=== PATIENT | female | born 1925 | race Caucasian/White ===

== ENCOUNTER 2016-06-09 13:45 | Inpatient (IN) | payer OTHER ==
[2016-06-09 13:51] VITALS: BMI 24.0
--- NOTE | 2016-06-09 14:17 | PDOC ---
History of Present Illness <Rachel Briscoe - Last Filed: 06/09/16 17:13> - General History Source: Patient Exam Limitations: No Limitations - History of Present Illness Initial Comments: 06/09/16 14:19 89y F hx of COPD (not o2 dependent) CHF, HTN, HL, presents with cough/body aches , nasal congestion x 9 days - pt denies any associated fevers. Pt was given a cough medicine by dr. bazan, symtomshave not been getting better, and pt endorses mild substernal chets pain that is worse with coughing, not worse with ambulation/exertion, as well as some sob as well. pt denies any recent sick contacts, travel. The pt states cough is nonproductive. denies leg swelling, hemoptysis. no known cad former smoker 50 yrs ago) 06/09/16 14:41 <Cole Cancino - Last Filed: 06/09/16 17:20> - General Chief Complaint: Respiratory Stated Complaint: TROUBLE BREATHING Time Seen by Provider: 06/09/16 14:07 Past History <Rachel Briscoe - Last Filed: 06/09/16 17:13> - Past Medical History Cardiac Disorders: Yes (chf) COPD: Yes GI Disorders: Yes HTN: Yes Hypercholesterolemia: Yes - Surgical History Appendectomy: Yes - Immunization History Immunization Up to Date: Yes - Psycho/Social/Smoking Cessation Hx Anxiety: No Suicidal Ideation: No Smoking History: Former smoker Have you smoked in the past 12 months: No If you are a former smoker, when did you quit?: 50 YRS Information on smoking cessation initiated: No Hx Alcohol Use: No Drug/Substance Use Hx: No Substance Use Type: None <Cole Cancino - Last Filed: 06/09/16 17:20> - Past Medical History Allergies/Adverse Reactions: Allergies Allergy/AdvReac Type Severity Reaction Status Date / Time codeine Allergy Verified 06/09/16 13:51 Home Medications: Ambulatory Orders Ascorbate Calcium [Vitamin C] 500 mg PO DAILY 06/09/16 Carvedilol [Coreg] 6.25 mg PO BID 06/09/16 Ferrous Sulfate [Feosol] 325 mg PO DAILY 06/09/16 Furosemide [Lasix -] 40 mg PO DAILY 06/09/16 Omeprazole 40 mg PO DAILY 06/09/16 Polyethylene Glycol 3350 [Miralax (For Daily Use) -] 17 gm PO DAILY 06/09/16 Spironolactone [Aldactone] 25 mg PO DAILY 06/09/16 Valsartan [Diovan] 40 mg PO DAILY 06/09/16 Review of Systems - Review of Systems Able to Perform ROS?: Yes Comments:: 06/09/16 14:38 Constitutional - no reported Fever, Chills, weakness, HEENT: no reported vision changes, sore throat Respiratory: + cough, sob, no reported hemoptysis Cardiac: +chest pain, no reported palpitations, light headedness, leg swelling Abd/GI: no reported abd pain, nausea, vomiting, blood per rectum, melena, diarrhea : no reported dysuria, frequency, discharge Musculskelatal - no reported back pain, joint swelling skin - no reported bruising, erythema, rash neurological: no reported headache, numbness, focal weakness, tingling, ataxia, weakness hematologic: no reported anemia, easy bruising, easy bleeding <Cole Cancino - Last Filed: 06/09/16 17:20> *Physical Exam - Vital Signs Last Vital Signs Temp Pulse Resp BP Pulse Ox 98.0 F 74 22 104/41 100 06/09/16 13:47 06/09/16 13:47 06/09/16 13:47 06/09/16 13:47 06/09/16 13:47 <Rachel Briscoe - Last Filed: 06/09/16 17:13> - Vital Signs Last Vital Signs Temp Pulse Resp BP Pulse Ox 98.0 F 74 22 104/41 100 06/09/16 13:47 06/09/16 13:47 06/09/16 13:47 06/09/16 13:47 06/09/16 13:47 - Physical Exam Comments: 06/09/16 14:40 GENERAL: The patient is awake, alert, and fully oriented, Nontoxic - in no acute distress. HEAD: Normocephalic, atraumatic. EYES: extraocular movements intact, sclera anicteric, conjunctiva clear. ENT: Normal voice, Moist mucous membranes. NECK: Normal range of motion, supple LUNGS: Bilateral moderate wheezing with rhonchi, no tachypnea, speaking complete sentences HEART: Regular rate and rhythm, normal S1 and S2 without murmur, rub or gallop. ABDOMEN: Soft, nontender, normoactive bowel sounds. No guarding, no rebound. No CVA tenderness EXTREMITIES: Normal range of motion, no edema. No clubbing or cyanosis. No cords, erythema, or tenderness. NEUROLOGICAL: No facial assymetry, Normal speech, moving all 4 extremities spontaneously and symmetrically PSYCH: Normal mood, normal affect. SKIN: Warm, Dry, normal turgor, <Cole Cancino - Last Filed: 06/09/16 17:20> Heart Score/ECG Review - ECG Impressions Comment:: 06/09/16 17:19 Twelve-lead EKG was performed and reviewed by me. There is normal sinus rhythm with a normal rate. Rate of 75 The axis is normal. The intervals are normal. There is normal R wave progression There are no ST or T wave abnormalities. Impression: Normal twelve-lead EKG <Julita,Cole - Last Filed: 06/09/16 17:20> ED Treatment Course - LABORATORY CBC & Chemistry Diagram: 06/09/16 14:57 06/09/16 14:57 - ADDITIONAL ORDERS Additional order review: Laboratory Results 06/09/16 06/09/16 14:57 14:57 Sodium 138 Potassium 4.9 Chloride 102 Carbon Dioxide 25 Anion Gap 11 BUN 72 H D Creatinine 1.8 H Creat Clearance w eGFR 26.49 Random Glucose 140 H D Calcium 8.1 L Total Bilirubin 0.2 D AST 12 L ALT 8 L Alkaline Phosphatase 64 Creatine Kinase 110 Troponin I < 0.02 Total Protein 6.1 L Albumin 2.8 L Blood Type B NEGATIVE Antibody Screen Negative Crossmatch See Detail 06/09/16 14:57 Influenza Types A,B Antigen ([place]) - Final Nasopharyngeal Swab - Final 06/09/16 14:57 RBC 2.30 L MCV 91.2 MCHC 31.7 L RDW 14.3 D MPV 9.3 Neutrophils % 75.1 Lymphocytes % 13.7 Monocytes % 7.0 Eosinophils % 3.5 Basophils % 0.7 - Medications Given in the ED: ED Medications Discontinued Medications Generic Name Dose Route Start Last Admin Trade Name Freq PRN Reason Stop Dose Admin Albuterol Sulfate 1 amp 06/09/16 15:59 06/09/16 16:18 Ventolin 0.083% Nebulizer Soln - NEB 06/09/16 16:00 1 amp ONCE ONE Administration Albuterol/Ipratropium 1 amp 06/09/16 14:18 06/09/16 14:30 Duoneb - NEB 06/09/16 14:19 1 amp ONCE ONE Administration Prednisone 60 mg 06/09/16 14:18 06/09/16 14:30 Deltasone - PO 06/09/16 14:19 60 mg ONCE ONE Administration <Rachel Briscoe - Last Filed: 06/09/16 17:13> - LABORATORY CBC & Chemistry Diagram: 06/09/16 14:57 06/09/16 14:57 <JulitaCole rodriguez - Last Filed: 06/09/16 17:20> Medical Decision Making - Medical Decision Making 06/09/16 17:04 Dr. Bazan was paged at this time requesting a callback for a doctor to doctor service. 06/09/16 17:13 Dr. Holly returned the call, covering for Dr. Bazan. the patient's case was discussed at this time. <Rachel Briscoe - Last Filed: 06/09/16 17:13> - Medical Decision Making 06/09/16 14:19 89y F hx of COPD (not o2 dependent) CHF, HTN, HL, presents for evaluation of nasal cognestion, cough, body aches, shortness of breath for 9 days without significant improvement now associated with mild chest pain. On exam the patient has moderate wheezing diffusely although she is able to speak complete sentences and no acute respiratory distress. Suspect influenza versus URI exacerbating her COPD, we'll obtain chest x-ray to rule out pneumonia Will obtain blood work to rule out anemia, metabolic derangements Will give DuoNeb and prednisone will check influenza Will reassess PMD dr. bazan 06/09/16 17:17 labs reivewed noted for anemia to 6.7 - pt had prior history of anemia - currently getting workup - nondiagnostic endoscopy and colonscopy - pt awaiting capsul study by her GI doc. will transuse 2u prbcs pt feeling imrproved will admit pt for further management of anemia, copd/viral syndrome case d/w dr. holly - accepted for admission for further management stable for med/surg Case discussed in detail with admitting physician including history, physical exam and ancillary studies. Admitting physician has assumed care for the patient, will follow all pending diagnostics and will complete the evaluation and treatment. <Cole Cancino - Last Filed: 06/09/16 17:20> *DC/Admit/Observation/Transfer <Rachel Briscoe - Last Filed: 06/09/16 17:13> - Discharge Dispostion Admit: Yes <Cole Cancino - Last Filed: 06/09/16 17:20> Diagnosis at time of Disposition: Obstructive chronic bronchitis with exacerbation, Influenza-like symptoms Anemia Qualifiers: Anemia type: unspecified type Qualified Code(s): D64.9 - Anemia, unspecified - Discharge Dispostion Condition at time of disposition: Guarded
[2016-06-09] MEDS ORDERED: predniSONE 20 MG TABLET (UD) PO ONE (14:18)
[2016-06-09] MEDS ORDERED: ALBUTEROL SO4 2.5/IPRATROPIUM 0.5 INH SOL 3 ML VIAL.NEB. NEB ONE ×2 (14:18→14:29)
[2016-06-09] MEDS ORDERED: predniSONE 20 MG TABLET (UD) ONE (14:28)
[2016-06-09 15:57] LABS: BASOPHIL 0.7 % (0-2.0); EOSINOPHIL 3.5 % (0-4.5); MCH 28.9 pg (25.7-33.7); MCHC 31.7 g/dl (32.0-36.0); MEAN CELL VOLUME 91.2 fl (80-96); MEAN PLT VOLUME 9.3 fl (7.5-11.1); NEUTROPHILS 75.1 % (42.8-82.8); PLATELET COUNT 220 K/MM3 (134-434); RDW 14.3 % (11.6-15.6)
[2016-06-09] MEDS ORDERED: ALBUTEROL SO4 0.083% IH SOL 2.5 MG/3 ML VIAL.NEB. NEB ONE ×2 (15:59→16:14)
[2016-06-09 16:01] LABS: ALBUMIN 2.8 g/dl (3.4-5.0); ANION GAP 11 (8-16); BILIRUBIN,TOTAL 0.2 mg/dL (0.2-1.0); CALCIUM 8.1 mg/dL (8.5-10.1); CO2 25 mmol/L (21-32); CREATININE 1.8 mg/dL (0.55-1.02); GLUCOSE,RANDOM 140 mg/dL (74-106); SGOT/AST 12 U/L (15-37); SGPT/ALT 8 U/L (12-78); TOT PROT 6.1 g/dl (6.4-8.2)
[2016-06-09 16:04] LABS: ALK PHOS 64 U/L (45-117); TROPONIN I < 0.02 ng/ml (0.00-0.05)
[2016-06-09 18:56] LABS: URINE APPEARANCE SLCLOUDY; URINE BILIRUBIN NEGATIVE (NEGATIVE); URINE BLOOD NEGATIVE (NEGATIVE); URINE COLOR STRAW; URINE GLUCOSE (UA) NEGATIVE (NEGATIVE); URINE KETONE NEGATIVE (NEGATIVE); URINE NITRITE NEGATIVE (NEGATIVE); URINE PROTEIN NEGATIVE (NEGATIVE); URINE UROBILINOGEN NEGATIVE E.U./dl (0.2-1.0)
[2016-06-09 18:57] LABS: URINE LEUK ESTERASE 3+ (NEGATIVE)
[2016-06-09 18:58] LABS: URINE BACTERIA RARE /hpf (NONE SEEN); URINE HYALINE CAST 3 /lpf; URINE MUCUS RARE; URINE RBC 2 /hpf (0-3); URINE WBC 72 /hpf (3-5)
--- NOTE | 2016-06-10 08:09 | CONSULT ---
Consult - text type - Consultation Consultation Note: Renal Consult for [place] vs. CKD This is a 89 year old woman with PMhx of CHF, COPD, Hypertension, Hyperlipidemia , CKD stage 3 who presented with cough/body aches x 1 week and found to have acute on chronic anemia and BUN/Cr of 72/1.8. Pt denies any fever or chills. Denies any melena or sveta blood. [facility] show source of [facility]. Pt is pending capsule endoscopy. Pt denies any NSAID use. No recent contrast exposure. No flank pain. No rash or recent abx use. No N /V. + loose stool x 1. No abd pain. No confusion or lethargy. No weakness. s/p 2 prbc tranfusion in the ED. Cough is non-productive. + Incontinence PMhx: as above Allergies: NKDA Family hx: NC Social Hx: Former smoker. No ETOH ROS: as per HPI, all other ros negative Home Meds: Medication Instructions Recorded Ascorbate Calcium [Vitamin C] 500 mg PO DAILY 06/09/16 Carvedilol [Coreg] 6.25 mg PO BID 06/09/16 Ferrous Sulfate [Feosol] 325 mg PO DAILY 06/09/16 Furosemide [Lasix -] 40 mg PO DAILY 06/09/16 Omeprazole 40 mg PO DAILY 06/09/16 Polyethylene Glycol 3350 [Miralax 17 gm PO DAILY 06/09/16 (For Daily Use) -] Spironolactone [Aldactone] 25 mg PO DAILY 06/09/16 Valsartan [Diovan] 40 mg PO DAILY 06/09/16 Vital Signs Temperature 98.5 F 06/09/16 17:30 Pulse Rate 79 06/09/16 17:30 Respiratory Rate 18 06/09/16 17:30 Blood Pressure 134/47 06/09/16 17:30 O2 Sat by Pulse Oximetry (%) 98 06/10/16 04:00 Intake & Output 06/07/16 06/08/16 06/09/16 06/10/16 23:59 23:59 23:59 23:59 Intake Total 600 350 Balance 600 350 Weight 136 lb Gen: NAD, awake and alert HEENT: NC/AT, MMM, NO JVD CVS: RRR, No M/R Lungs: dec BS, no rales or wheeze Abd: soft NT/ND Ext: No edema, clubbing or cyanosis : No bladder distension 06/09/16 14:57 06/09/16 14:57 Laboratory Tests 06/09/16 06/09/16 06/09/16 14:57 14:57 18:42 MCV 91.2 Calcium 8.1 L Albumin 2.8 L Urine pH 5.0 Ur Specific [place] 1.009 Urine Protein Negative Urine Blood Negative A/P 89 year old woman with PMhx of CHF, COPD, Hypertension, Hyperlipidemia, CKD stage 3 who presented with cough/body aches x 1 week and found to have acute on chronic anemia and BUN/Cr of 72/1.8. #Acute vs. Chronic renal insuffiency Prior Cr values 1.4-1.6 High BUN this admission likely multifactorial form diuretics + GI bleed NO uremic symptoms at this time Check UA, UPCR, FeUrea, SPEP, UPEP Continue home dose diuretics at this time given hx of chf and cough Repeat labs today after blood transfusion no indication for RN SHIFT MGR dose all med for Cr cl less then 30 #acute on chronic anemia s/p prbc transfusion GI eval consider heme eval #Hypertension Hold Valsartan and Aldactone for now Goal BP < 140/90 #Hx of CHF no signs of acute decompensation Cardiology follow up Thank you Will follow Todd Roy DO
--- NOTE | 2016-06-10 09:25 | EKG ---
Test Reason : Blood Pressure : / mmHG Vent. Rate : 075 BPM Atrial Rate : 075 BPM P-R Int : 188 ms QRS Dur : 078 ms QT Int : 406 ms P-R-T Axes : 050 052 031 degrees QTc Int : 453 ms NORMAL SINUS RHYTHM NORMAL ECG WHEN COMPARED WITH ECG OF 29-MAR-2016 22:32, PREMATURE ATRIAL COMPLEXES ARE NO LONGER PRESENT Confirmed by MANAS BURCH MD ([id number]) on 06/10/2016 9:25:10 AM Referred By: Confirmed By:MANAS BURCH MD
[2016-06-10] MEDS ORDERED: predniSONE 20 MG TABLET (UD) PO SCH (10:00)
[2016-06-10] MEDS ORDERED: predniSONE 20 MG TABLET (UD) ONE (10:16)
[2016-06-10 10:23] LABS: MEAN CELL VOLUME 86.5 fl (80-96); WHITE BLOOD COUNT 7.7 K/mm3 (4.0-10.0)
[2016-06-10 10:24] LABS: BASOPHIL 1.3 % (0-2.0); MCH 29.4 pg (25.7-33.7); MEAN PLT VOLUME 8.8 fl (7.5-11.1); NEUTROPHILS 85.1 % (42.8-82.8); PLATELET COUNT 215 K/MM3 (134-434); RDW 16.5 % (11.6-15.6)
[2016-06-10] MEDS: FERROUS SO4 325 MG TABLET (FP) PO SCH (10:32)
[2016-06-10] MEDS: CARVEDILOL 6.25 MG TABLET (FP) PO SCH ×2 (10:32→22:16)
[2016-06-10] MEDS: ASCORBIC ACID 500 MG TABLET (FP) PO SCH (10:33)
[2016-06-10] MEDS: PANTOPRAZOLE 40 MG TABLET (FP) PO SCH (10:33)
[2016-06-10 10:36] LABS: ALBUMIN 2.7 g/dl (3.4-5.0); BILIRUBIN,TOTAL 0.6 mg/dL (0.2-1.0); CREATININE 1.5 mg/dL (0.55-1.02); PHOSPHOROUS 2.9 mg/dL (2.5-4.9); TOT PROT 5.9 g/dl (6.4-8.2)
--- NOTE | 2016-06-10 10:56 | PN ---
Progress Note, Physician Chief Complaint: Pt awake alert Pt seen in the ER Sob Improved Pt has 2 units of PRBC Renal note appreciated GI and Hematology consult awaiting - Current Medication List Current Medications: Active Medications Albuterol Sulfate (Ventolin 0.083% Nebulizer Soln -) 1 amp NEB Q6H PRN PRN Reason: SHORT OF BREATH/WHEEZING Ascorbic Acid (Vitamin C -) 500 mg PO DAILY [facility] Last Admin: 06/10/16 10:33 Dose: 500 mg Carvedilol (Coreg -) 6.25 mg PO BID [facility] Last Admin: 06/10/16 10:32 Dose: 6.25 mg Ferrous Sulfate (Feosol -) 325 mg PO DAILY [facility] Last Admin: 06/10/16 10:32 Dose: 325 mg Pantoprazole Sodium (Protonix -) 40 mg PO DAILY [facility] Last Admin: 06/10/16 10:33 Dose: 40 mg Prednisone (Deltasone -) 40 mg PO DAILY [facility] Last Admin: 06/10/16 10:32 Dose: 40 mg - Objective Vital Signs: Vital Signs Temperature 98 F 06/10/16 10:30 Pulse Rate 88 06/10/16 10:30 Respiratory Rate 18 06/10/16 10:30 Blood Pressure 146/72 06/10/16 10:30 O2 Sat by Pulse Oximetry (%) 97 06/10/16 10:30 Constitutional: Yes: No Distress Eyes: Yes: Conjunctiva Clear HENT: Yes: Atraumatic, Normocephalic Cardiovascular: Yes: Regular Rate and Rhythm Respiratory: Yes: Regular, Diminished (Lung base) Gastrointestinal: Yes: Normal Bowel Sounds, Soft Musculoskeletal: Yes: WNL Extremities: Yes: WNL Peripheral Pulses WNL: Yes Neurological: Yes: WNL, Alert ...Motor Strength: WNL Psychiatric: Yes: Alert, Oriented Labs: CBC, BMP 06/10/16 08:14 06/10/16 09:50 - ....Imaging Chest X-ray: Report Reviewed Assessment/Plan SOB COPD exacerbation Anemia Viral syndtome HTN H/O chf Hypercholestrolemia PLAN Continue Albuterol nebulising treatment Diovan and aldactone on hold as per renal will f/u cardioplogy,pul and GI rec hematology consult for anemia will monitor CBC
--- NOTE | 2016-06-10 11:26 | CONSULT ---
Consult Consult Specialty:: Cardiology Referred by:: Radha Giraldo MD Reason for Consultation:: MVP with mod-severe MR - History of Present Illness Chief Complaint: Dyspnea, nonproductive cough History of Present Illness: Patient is an 89 year old female with underlying history of HTN, CHF, anemia, COPD, GERD, KASIE last summer revealing moderate to severe mitral regurgitation with moderate anterior MVP, anemia with unrevealing EGD/colonoscopy planned for capsule endoscopy presented with nonproductive cough, chills, myalgias, dyspnea without chest pain, fevers, palpitations, orthopnea, PND or LE edema. She was found to be anemic received 2 U PRBC and pre-renal acute on ckd resolving with volume repletion. - History Source History Provided By: Patient Limitations to Obtaining History: No Limitations - Past Medical History Cardio/Vascular: Yes: CHF, HTN, Mitral Insufficiency Pulmonary: Yes: COPD Gastrointestinal: Yes: GERD Renal/: Yes: Renal Inusuff Musculoskeletal: Yes: Chronic low back pain (spinal stenosis) Endocrine: Yes: Diabetes Mellitus - Past Surgical History Past Surgical History: Yes: Colonoscopy, (x 2), Mastectomy (left partial mastectomy for cancer), Upper Endoscopy - Alcohol/Substance Use Hx Alcohol Use: No - Smoking History Smoking history: Former smoker Have you smoked in the past 12 months: No If you are a former smoker, when did you quit?: 50 YRS - Social History Usual Living Arrangement: Alone ADL: Independent History of Recent Travel: No Home Medications - Allergies Allergies/Adverse Reactions: Allergies Allergy/AdvReac Type Severity Reaction Status Date / Time codeine Allergy Verified 06/09/16 13:51 - Home Medications Home Medications: Ambulatory Orders Ascorbate Calcium [Vitamin C] 500 mg PO DAILY 06/09/16 Carvedilol [Coreg] 6.25 mg PO BID 06/09/16 Ferrous Sulfate [Feosol] 325 mg PO DAILY 06/09/16 Furosemide [Lasix -] 40 mg PO DAILY 06/09/16 Omeprazole 40 mg PO DAILY 06/09/16 Polyethylene Glycol 3350 [Miralax (For Daily Use) -] 17 gm PO DAILY 06/09/16 Spironolactone [Aldactone] 25 mg PO DAILY 06/09/16 Valsartan [Diovan] 40 mg PO DAILY 06/09/16 Family Disease History - Family Disease History Family Disease History: Heart Disease: Father, Brother, [place]: Mother ( bladder canccer), Sister (cervical cancer) Review of Systems - Review of Systems Constitutional: reports: Chills Respiratory: reports: Cough, SOB Vital Signs: Vital Signs Temperature 98 F 06/10/16 10:30 Pulse Rate 88 06/10/16 10:30 Respiratory Rate 18 06/10/16 10:30 Blood Pressure 146/72 06/10/16 10:30 O2 Sat by Pulse Oximetry (%) 97 06/10/16 10:30 Constitutional: Yes: No Distress, Calm Neck: Yes: Supple Respiratory: Yes: Regular, Diminished Gastrointestinal: Yes: Normal Bowel Sounds, Soft Cardiovascular: Yes: Regular Rate and Rhythm JVD: No Carotid Bruit: No Heart Sounds: Yes: S1, S2 Murmur: Yes: Systolic Murmur, Grade 2 Edema: No - Other Data Labs, Other Data: CBC, BMP 06/10/16 08:14 06/10/16 09:50 NSR normal EKG Ejection Fraction %: LVEF > or = 40 % Imaging - Results Chest X-ray: Report Reviewed (NAD) Problem List - Problems (1) Anemia Code(s): D64.9 - ANEMIA, UNSPECIFIED Qualifiers: Anemia type: unspecified type Qualified Code(s): D64.9 - Anemia, unspecified (2) COPD exacerbation Code(s): J44.1 - CHRONIC OBSTRUCTIVE PULMONARY DISEASE W (ACUTE) EXACERBATION (3) Acute on chronic renal insufficiency Code(s): N28.9 - DISORDER OF KIDNEY AND URETER, UNSPECIFIED N18.9 - CHRONIC KIDNEY DISEASE, UNSPECIFIED (4) GI bleeding Code(s): K92.2 - GASTROINTESTINAL HEMORRHAGE, UNSPECIFIED Qualifiers: GI bleed type/associated pathology: angiodysplasia of stomach and duodenum Qualified Code(s): K31.811 - Angiodysplasia of stomach and duodenum with bleeding (5) Hypertensive cardiovascular disease Code(s): I11.9 - HYPERTENSIVE HEART DISEASE WITHOUT HEART FAILURE Qualifiers: Heart failure presence: without heart failure Qualified Code(s): I11.9 - Hypertensive heart disease without heart failure (6) Mitral valve prolapse Code(s): I34.1 - NONRHEUMATIC MITRAL (VALVE) PROLAPSE Assessment/Plan 10/19/2015 Echo: Normal biventricular size and fxn, severe MVP with severe MR, mod TR, severe pulm HTN, mod LAE 1. AE COPD, acute on chronic bronchitis 2. CAD angina pectoris, stable 3. Chronic LV diastolic dysfunction with 4. MVP with moderate to severe mitral regurgitation 5. HTN/HCVD 6. Anemia probable GI blood loss, small bowel AVM post transfusion, await outpatient capsule endoscopy 7. Acute on CKD improved PLAN: 1. BD, O2, Prednisone with GI protection as you are 2. Continue Carvedilol 6.25 bid. Resume Lasix 40 qd, Diovan 40 qd and Aldactone 25 qd once renal fxn stabilized 3. Hold ASA pending completion of GI evaluation, monitor Hgb post transfusion 4. Thank you for consultative opportunity
[2016-06-10] MEDS ORDERED: ALBUTEROL SO4 0.083% IH SOL 2.5 MG/3 ML VIAL.NEB. NEB ONE (12:12)
[2016-06-10] MEDS: ALBUTEROL SO4 0.083% IH SOL 2.5 MG/3 ML VIAL.NEB. NEB PRN (12:17)
--- NOTE | 2016-06-10 13:10 | CONSULT ---
Consult Consult Specialty:: PULMONARY Referred by:: Dr. Giraldo Reason for Consultation:: COPD - History of Present Illness Chief Complaint: shortness of breath History of Present Illness: 89yo female with h/o HTN, COPD, GERD, LV diastolic dysfunction, severe mitral regurgitation who presents with worsening shortness of breath and wheezing x 1 week. A week ago she started experiencing subjective fevers, chills and generalized malaise. Started to wheeze and with worsening shortness of breath so she came to the ER. She reports a nonproductive cough. No chest pain or palpitations. She is a remote smoker, quit 50 years ago, is maintained on nebulizers at home, used to be on Breo but it was too expensive so she stopped it on her own. She does not get the flu shot. - History Source History Provided By: Patient, Medical Record Limitations to Obtaining History: No Limitations - Past Medical History Cardio/Vascular: Yes: CHF, HTN, Mitral Insufficiency Pulmonary: Yes: COPD Gastrointestinal: Yes: GERD Renal/: Yes: Renal Inusuff Musculoskeletal: Yes: Chronic low back pain (spinal stenosis) Endocrine: Yes: Diabetes Mellitus - Past Surgical History Past Surgical History: Yes: Colonoscopy, (x 2), Mastectomy (left partial mastectomy for cancer), Upper Endoscopy - Alcohol/Substance Use Hx Alcohol Use: No - Smoking History Smoking history: Former smoker Have you smoked in the past 12 months: No If you are a former smoker, when did you quit?: 50 YRS - Social History Usual Living Arrangement: Alone ADL: Independent History of Recent Travel: No Home Medications - Allergies Allergies/Adverse Reactions: Allergies Allergy/AdvReac Type Severity Reaction Status Date / Time codeine Allergy Verified 06/09/16 13:51 - Home Medications Home Medications: Ambulatory Orders Ascorbate Calcium [Vitamin C] 500 mg PO DAILY 06/09/16 Carvedilol [Coreg] 6.25 mg PO BID 06/09/16 Ferrous Sulfate [Feosol] 325 mg PO DAILY 06/09/16 Furosemide [Lasix -] 40 mg PO DAILY 06/09/16 Omeprazole 40 mg PO DAILY 06/09/16 Polyethylene Glycol 3350 [Miralax (For Daily Use) -] 17 gm PO DAILY 06/09/16 Spironolactone [Aldactone] 25 mg PO DAILY 06/09/16 Valsartan [Diovan] 40 mg PO DAILY 06/09/16 Family Disease History - Family Disease History Family Disease History: Heart Disease: Father, Brother, [place]: Mother ( bladder canccer), Sister (cervical cancer) Review of Systems - Review of Systems Constitutional: reports: Chills, Fever, Malaise, Weakness Eyes: denies: Recent Change in Vision HENT: denies: Nasal Congestion, Throat Pain Neck: denies: Stiffness, Tenderness Cardiovascular: reports: Shortness of Breath. denies: Chest Pain, Edema, Palpitations Respiratory: reports: Cough, SOB, SOB on Exertion, Wheezing. denies: Hemoptysis Gastrointestinal: denies: Abdominal Pain, Nausea, Vomiting Genitourinary: denies: Dysuria, Hematuria Neurological: denies: Dizziness, Headache Physical Exam Vital Sings: Vital Signs Temperature 98 F 06/10/16 10:30 Pulse Rate 88 06/10/16 10:30 Respiratory Rate 18 06/10/16 10:30 Blood Pressure 146/72 06/10/16 10:30 O2 Sat by Pulse Oximetry (%) 97 06/10/16 11:17 Constitutional: Yes: No Distress, Calm Eyes: Yes: Conjunctiva Clear, EOM Intact HENT: Yes: Atraumatic, Normocephalic Neck: Yes: Supple, Trachea Midline Cardiovascular: Yes: Regular Rate and Rhythm Respiratory: Yes: Rhonchi, Wheezes ...Clubbing: No Gastrointestinal: Yes: Normal Bowel Sounds, Soft. No: Tenderness Edema: No Neurological: Yes: Alert, Oriented Labs: CBC, BMP 06/10/16 08:14 06/10/16 09:50 Imaging - Results Chest X-ray: Report Reviewed, Image Reviewed (no infiltrates) Problem List - Problems (1) COPD exacerbation Code(s): J44.1 - CHRONIC OBSTRUCTIVE PULMONARY DISEASE W (ACUTE) EXACERBATION (2) Left ventricular diastolic dysfunction Code(s): I51.9 - HEART DISEASE, UNSPECIFIED (3) Mitral regurgitation Code(s): I34.0 - NONRHEUMATIC MITRAL (VALVE) INSUFFICIENCY (4) Mitral valve prolapse Code(s): I34.1 - NONRHEUMATIC MITRAL (VALVE) PROLAPSE (5) Anemia Code(s): D64.9 - ANEMIA, UNSPECIFIED Qualifiers: Anemia type: unspecified type Qualified Code(s): D64.9 - Anemia, unspecified (6) Chronic kidney disease (CKD) Code(s): N18.9 - CHRONIC KIDNEY DISEASE, UNSPECIFIED Qualifiers: Chronic kidney disease stage: stage 2 (mild) Qualified Code(s): N18.2 - Chronic kidney disease, stage 2 (mild) Assessment/Plan Acute COPD Exacerbation LV Diastolic Dysfunction Mitral Regurgitation/Mitral Valve Prolapse HTN GERD - IV medrol - inhaled bronchodilators standing and PRN - O2 to keep Spo2 >90% - should be on LABA/ICS when ready for discharge - outpt PFTs - will follow with you - DVT/GI prophylaxis Thank you for this consult Henok Edward MD
[2016-06-10] MEDS: methylPREDNISolone NA SUCC 40 MG/1 ML VIAL IVPB SCH ×2 (16:38→18:40)
[2016-06-10 16:46] LABS: URINE APPEARANCE CLEAR; URINE BILIRUBIN NEGATIVE (NEGATIVE); URINE BLOOD NEGATIVE (NEGATIVE); URINE COLOR LTYELLOW; URINE GLUCOSE (UA) NEGATIVE (NEGATIVE); URINE KETONE NEGATIVE (NEGATIVE); URINE NITRITE NEGATIVE (NEGATIVE); URINE PROTEIN NEGATIVE (NEGATIVE); URINE UROBILINOGEN NEGATIVE E.U./dl (0.2-1.0)
--- NOTE | 2016-06-10 16:47 | CONSULT ---
Consult - text type - Consultation Consultation Note: 89yo female with h/o HTN, COPD, GERD, LV diastolic dysfunction, severe mitral regurgitation who presents with worsening shortness of breath and wheezing for 1 week. A week ago she started experiencing subjective fevers, chills and generalized malaise. She reports a nonproductive cough. No chest pain or palpitations. She is a remote smoker, quit 50 years ago, is maintained on nebulizers at home. Was noted to be severely anemic --Hgb 6.7 and was transfused PRBCs - Past Medical History Cardio/Vascular: Yes: CHF, HTN, Mitral Insufficiency Pulmonary: Yes: COPD Gastrointestinal: Yes: GERD Renal/: Yes: Renal Inusuff Musculoskeletal: Yes: Chronic low back pain (spinal stenosis) Endocrine: Yes: Diabetes Mellitus - Past Surgical History Past Surgical History: Yes: Colonoscopy, (x 2), Mastectomy (left partial mastectomy for cancer), Upper Endoscopy - Smoking History Smoking history: Former smoker Home Medications - Allergies Allergies/Adverse Reactions: Allergies Allergy/AdvReac Type Severity Reaction Status Date / Time codeine Allergy Verified 06/09/16 13:51 - Home Medications Home Medications: Ambulatory Orders Ascorbate Calcium [Vitamin C] 500 mg PO DAILY 06/09/16 Carvedilol [Coreg] 6.25 mg PO BID 06/09/16 Ferrous Sulfate [Feosol] 325 mg PO DAILY 06/09/16 Furosemide [Lasix -] 40 mg PO DAILY 06/09/16 Omeprazole 40 mg PO DAILY 06/09/16 Polyethylene Glycol 3350 [Miralax (For Daily Use) -] 17 gm PO DAILY 06/09/16 Spironolactone [Aldactone] 25 mg PO DAILY 06/09/16 Valsartan [Diovan] 40 mg PO DAILY 06/09/16 Current Medications Albuterol Sulfate (Ventolin 0.083% Nebulizer Soln -) 1 amp NEB Q6H PRN PRN Reason: SHORT OF BREATH/WHEEZING Last Admin: 06/10/16 12:17 Dose: 1 amp Albuterol/Ipratropium (Duoneb -) 1 amp NEB QIDR [facility]ON[facility] Ascorbic Acid (Vitamin C -) 500 mg PO DAILY [facility] Last Admin: 06/10/16 10:33 Dose: 500 mg Carvedilol (Coreg -) 6.25 mg PO BID [facility] Last Admin: 06/10/16 10:32 Dose: 6.25 mg Ferrous Sulfate (Feosol -) 325 mg PO DAILY [facility] Last Admin: 06/10/16 10:32 Dose: 325 mg Methylprednisolone Sodium Succinate (Solu-Medrol -) 40 mg IVPB Q8H-IV [facility] Last Admin: 06/10/16 16:38 Dose: 40 mg Pantoprazole Sodium (Protonix -) 40 mg PO DAILY [facility] Last Admin: 06/10/16 10:33 Dose: 40 mg Physical Exam Vital Sings: Last Vital Signs Temp Pulse Resp BP Pulse Ox 97.8 F 81 17 133/70 98 06/10/16 14:56 06/10/16 14:56 06/10/16 14:56 06/10/16 14:56 06/10/16 14:56 HEENT: RAEANN, EOM Intact Cor: RSR, No murmurs, No gallops Lungs: Clear to P&A Abd: Soft, Normal bowel sounds, No organomegaly Ext:No significant edema Abnormal Lab Results 06/09/16 06/09/16 06/10/16 14:57 18:42 08:14 RBC 2.82 L D Hgb 8.3 L D Hct 24.4 L D RDW 16.5 H D Neutrophils % 85.1 H Lymphocytes % 7.6 L D BUN Creatinine Random Glucose Calcium AST ALT Total Protein Albumin Ur Leukocyte Esterase 3+ H Crossmatch See Detail 06/10/16 09:50 RBC Hgb Hct RDW Neutrophils % Lymphocytes % BUN 67 H Creatinine 1.5 H Random Glucose 179 H D Calcium 8.0 L AST 8 L D ALT 9 L Total Protein 5.9 L Albumin 2.7 L Ur Leukocyte Esterase Crossmatch Imaging - Results Chest X-ray: Report Reviewed, Image Reviewed (no infiltrates) Problem List - Problems (1) COPD exacerbation Code(s): J44.1 - CHRONIC OBSTRUCTIVE PULMONARY DISEASE W (ACUTE) EXACERBATION (2) Left ventricular diastolic dysfunction Code(s): I51.9 - HEART DISEASE, UNSPECIFIED (3) Mitral regurgitation Code(s): I34.0 - NONRHEUMATIC MITRAL (VALVE) INSUFFICIENCY (4) Mitral valve prolapse Code(s): I34.1 - NONRHEUMATIC MITRAL (VALVE) PROLAPSE (5) Anemia Code(s): D64.9 - ANEMIA, UNSPECIFIED Qualifiers: Anemia type: unspecified type Qualified Code(s): D64.9 - Anemia, unspecified (6) Chronic kidney disease (CKD) Code(s): N18.9 - CHRONIC KIDNEY DISEASE, UNSPECIFIED Qualifiers: Chronic kidney disease stage: stage 2 (mild) Qualified Code(s): N18.2 - Chronic kidney disease, stage 2 (mild) Assessment/Plan Acute COPD Exacerbation LV Diastolic Dysfunction Mitral Regurgitation/Mitral Valve Prolapse HTN GERD Anemia Anemia -- normocytic .s/p 1 unit PRBCs anemia of CKD + ? gi blood loss h/o colonoscopy /EGD --which were normal in 04/10 per patient. Was scheduled for capsule endoscopy this week on feosol/Vit. c/protonix check screening tests
[2016-06-10 17:15] LABS: URINE LEUK ESTERASE 1+ (NEGATIVE)
[2016-06-10 17:24] LABS: URINE BACTERIA MANY /hpf (NONE SEEN); URINE MUCUS RARE; URINE WBC 14 /hpf (3-5)
[2016-06-10 17:35] LABS: URINE CREATININE 64.8 mg/dL
[2016-06-10] MEDS: ALBUTEROL SO4 2.5/IPRATROPIUM 0.5 INH SOL 3 ML VIAL.NEB. NEB SCH (18:26)
--- NOTE | 2016-06-10 19:29 | PN ---
Progress Note (short form) - Note Progress Note: Consult dictated 89F with worsened anemia and COPD exacerbation G + dark stool on exam however on iron as well obscure occult GI bleed in setting of recent unreevaling EGD/Colonoscopy Heme work-up to exclude concomitant cause of anemia Capsule endoscopy when able.
--- NOTE | 2016-06-10 20:39 | CONS ---
DATE OF CONSULTATION: DATE OF DICTATION: 06/10/2016 REQUESTING PHYSICIAN: Girma Bazan MD The patient is an 89-year-old woman admitted through [facility] for evaluation of fatigue, increasing cough, shortness of breath, wheezing, and she was admitted with a hemoglobin of 6.7. She was discharged April 03, 2016, with a hemoglobin of 7.9 during her previous admission. She denied any change in her bowel habits. She denied any over rectal bleeding or melena. She was evaluated by myself and my colleague, Dr. Vinod Esquivel, in March of 2016, at which time upper endoscopy and colonoscopy were performed for guaiac-positive stool and anemia. Upper endoscopy revealed a Schatzki's ring 35 cm from the incisors and was widely patent, as well as a 3-cm hiatal hernia and there was a sessile polyp measuring 4 mm in size that was found in the gastric body, which was benign, and duodenal mucosa showed no abnormalities to the 3rd portion of the duodenum. Colonoscopy revealed 2 sessile polyps in the rectum. One was diminutive and one was 5 mm in size. Two 4-mm polyps at the transverse colon and otherwise the colon appeared normal as did the terminal ileum. There was no source of anemia or bleeding identified. The patient did tell me that after her admission in March, she saw my colleague, Dr. Chu Mane, in office to discuss a capsule endoscopy, which she had scheduled for this coming Friday, however, given her hospitalization, this needs to be postponed. She tells me that she did not stop her iron supplementation either prior to this, as she was advised to do. Of note, the quality of the colonoscopy bowel prep was described as good. Past medical history includes anemia, CHF, hypertension, mitral valve insufficiency, COPD, history of diverticulosis, GERD, history of hiatal hernia, colon polyps, renal insufficiency, left lower extremity stents for peripheral vascular disease, left partial mastectomy, and RT, given the history of breast cancer. She has spinal stenosis, leading to chronic low back pain and diabetes mellitus. Past surgical history includes colonoscopy, section x2, mastectomy, as noted above, which was left partial mastectomy for breast cancer, appendectomy. ALLERGIES: CODEINE. SOCIAL HISTORY: She lives alone. She is independent. No history of recent travel. She is a former smoker, she quit approximately 50 years ago. No history of alcohol abuse, intravenous drug abuse, illicit drugs. MEDICATIONS PRIOR TO ADMISSION: Omeprazole 20 mg daily, ferrous sulfate daily, Aldactone, MiraLax 17 g daily, Lasix 40 mg daily, Diovan, Coreg, and vitamin C. REVIEW OF SYSTEMS: She complained of shortness of breath, she complained of cough. She denied any dysphagia or odynophagia. She denies any NSAID use. She denies any rectal bleeding. She denied any melena. She does describe lower extremity swelling, which is chronic in nature. PHYSICAL EXAMINATION: General: The patient is found lying comfortably in her bed. She appeared to be in no apparent distress. Vital Signs: Temperature is 98.2, pulse 74, blood pressure 143/51. Sclerae: Anicteric. Neck: Supple. Heart: Regular rate and rhythm. She did have a 2/6 holosystolic murmur, heard best at the left sternal border. Lungs: Revealed bilateral wheezing, right greater than left, and she had rhonchi at the right lung base. Abdomen: She had a right lower quadrant surgical scar. The abdomen was otherwise nondistended. She had normoactive bowel sounds. No hepatosplenomegaly was appreciated. No masses were palpated. No hernias detected. No tenderness is elicited. Extremities: 2+ lower extremity edema. Digital Rectal Exam: No external lesion, no masses. She had very dark brown stool in the rectal vault, which is guaiac positive. LABORATORY EVALUATION: White blood count 7.7, hemoglobin 8.3, hematocrit 24.4, platelets of 215, MCV 86.5, platelets of 215. Sodium 137, potassium 4.5, chloride 105, bicarbonate 24, BUN of 67, creatinine 1.5, glucose of 179, AST of 8, ALT of 9, alkaline phosphatase of 67, total bilirubin 0.6, with an albumin of 2.7. RADIOLOGY REPORTS: Chest x-ray revealed no acute pathology. IMPRESSION: An 89-year-old female with worsening anemia from her baseline along with acute chronic obstructive pulmonary disease exacerbation, left ventricular diastolic dysfunction. She is being treated for her pulmonary issues by Pulmonary. She is on IV corticosteroids as well. In terms of her current GI issues, she is guaiac positive and I do suspect that especially in the setting of recent endoscopy to the 3rd portion of her duodenum and colonoscopy, that her bleeding is likely coming from a small bowel source. Her occult bleeding is coming from a small bowel source and I suspect that small bowel vascular ectasias may be the culprit. For now, I would continue to monitor her hemoglobin and hematocrit, continue PPI therapy with Protonix 40 mg once daily, as well as iron and vitamin C therapy, and will continue to observe. If her hemoglobin and hematocrit continues to dwindle, then the possibility of a transfer for an inpatient capsule endoscopy would need to be considered at another institution and then pending the results, possible further endoscopic evaluation. I would, however, wait for her respiratory status to improve prior to any invasive testing, monitor hemoglobin and hematocrit for signs of ongoing active GI bleeding. I thank you for this consultative opportunity. ALEX BRANTLEY DO [id number]
[2016-06-11] MEDS: ALBUTEROL SO4 2.5/IPRATROPIUM 0.5 INH SOL 3 ML VIAL.NEB. NEB SCH ×4 (00:03→17:00)
[2016-06-11] MEDS: methylPREDNISolone NA SUCC 40 MG/1 ML VIAL IVPB SCH ×2 (02:21→09:12)
[2016-06-11 08:26] LABS: BASOPHIL 0.2 % (0-2.0); MCH 29.1 pg (25.7-33.7); MCHC 33.1 g/dl (32.0-36.0); MEAN CELL VOLUME 88.1 fl (80-96); NEUTROPHILS 91.8 % (42.8-82.8); PLATELET COUNT 213 K/MM3 (134-434); RDW 16.7 % (11.6-15.6); WHITE BLOOD COUNT 5.9 K/mm3 (4.0-10.0)
--- NOTE | 2016-06-11 08:44 | HP ---
DATE OF ADMISSION: 06/09/2016 HISTORY OF PRESENT ILLNESS: The patient is an 89-year-old female with a past medical history of COPD, CHF, hypertension, hypercholesterolemia, and chronic anemia, came to the emergency room with the complaint of cough and body ache, nasal congestion for 9 days. Patient denies fever, no chest pain. Patient was seen by the primary 9 days ago and got cough medicine, and there was no relief, and as per the patient, the coughing got worse and was associated with chest pain, came to the emergency room for further evaluation. No history of any palpitation. PAST MEDICAL HISTORY: As mentioned before, congestive heart failure, hypertension, hypercholesterolemia, COPD, and CHF. SURGICAL HISTORY: Appendectomy. ALLERGIES: CODEINE. PERSONAL HISTORY: History of smoking and quit 50 years ago. MEDICATION: Patient is on vitamin C 500 mg p.o. daily, carvedilol 6.25 mg p.o. b.i.d., Feosol 325 mg p.o. daily, Lasix 40 mg p.o. daily, omeprazole 40 mg p.o. daily, MiraLAX 17 g p.o. daily, Aldactone 25 mg p.o. daily, and Diovan 40 mg p.o. daily. REVIEW OF SYSTEMS: General: Patient has mild shortness of breath and cough. Respiratory: Cough and shortness of breath present. Cardiovascular: No chest pain, no palpitations. Gastrointestinal: No abdominal pain. No diarrhea. Musculoskeletal: Slight pedal edema present. Neurological: Nothing significant. PHYSICAL EXAMINATION: Vital signs: In the emergency room, temperature 98, pulse rate 74, respirations 22, blood pressure 104/51, saturation 100%. Head/Neck: Normal. No JVD. Chest: Occasional wheezing present. Cardiovascular: First and second sound normal. Abdomen: Soft. No tenderness. No distention. Bowel sounds present. Extremity: Mild edema present. Central Nervous System: Alert and oriented x3. No apparent motor or sensory deficit. Reflexes normal. LABORATORY: CBC: WBC 7, hemoglobin 6.7, hematocrit 21, platelets 220. Comprehensive panel: BUN 72, creatinine 1.8, sugar 140, sodium 138, potassium 4.9, calcium 8.1, AST/ALT normal. Troponin less than 0.02, albumin 2.8. Urine shows leukocyte esterase 3+, WBCs 72, bacteria rare, RBCs 2. Influenza A and B antigen negative. Chest x-ray: No acute infiltrate. EKG: Normal sinus rhythm, 75 per minute, no ST-T wave changes. IMPRESSION: Patient admitted in the floor with admitting diagnosis of shortness of breath, chronic obstructive pulmonary disease exacerbation, chronic anemia, viral syndrome. Patient was given Ventolin and DuoNeb nebulizer treatment in the emergency room. PLAN: Continue the nebulizer treatment, carvedilol 6.25 mg p.o. b.i.d., iron to be continued, 2 units of blood transfusion. Cardiology consult, pulmonary consult, hematology consult ordered. Will monitor the CBC. Patient stable on the floor. Harry [id number]
[2016-06-11 08:52] LABS: ALBUMIN 2.7 g/dl (3.4-5.0); BILIRUBIN,TOTAL 0.3 mg/dL (0.2-1.0); CALCIUM 8.5 mg/dL (8.5-10.1); CREATININE 1.6 mg/dL (0.55-1.02); FERRITIN 36.935 ng/ml (6.9-282.5); FREE T4 1.06 ng/dl (0.76-1.46); MAGNESIUM 2.5 mg/dL (1.8-2.4); PHOSPHOROUS 3.3 mg/dL (2.5-4.9); THYROID STIMULATING HORMONE 0.28 uIU/ml (0.358-3.74); TOT PROT 5.5 g/dl (6.4-8.2)
[2016-06-11] MEDS: ASCORBIC ACID 500 MG TABLET (FP) PO SCH (09:08)
[2016-06-11] MEDS: PANTOPRAZOLE 40 MG TABLET (FP) PO SCH (09:08)
[2016-06-11] MEDS: CARVEDILOL 6.25 MG TABLET (FP) PO SCH ×2 (09:08→21:45)
[2016-06-11] MEDS: FERROUS SO4 325 MG TABLET (FP) PO SCH (09:08)
--- NOTE | 2016-06-11 09:43 | PN ---
Progress Note (short form) - Note Progress Note: Ambulating in the hallway with her walker. Feels a little better today. Says that she feels "jittery" due to the IV steroids and wants them stopped. Still with some cough, less congested. Intake & Output 06/08/16 06/09/16 06/10/16 06/11/16 23:59 23:59 23:59 23:59 Intake Total 600 810 120 Balance 600 810 120 Weight 136 lb 136 lb Last Vital Signs Temp Pulse Resp BP Pulse Ox 98 F 80 18 110/59 97 06/11/16 06:39 06/11/16 06:39 06/11/16 06:39 06/11/16 06:39 06/10/16 23:00 Active Medications Albuterol Sulfate (Ventolin 0.083% Nebulizer Soln -) 1 amp NEB Q6H PRN PRN Reason: SHORT OF BREATH/WHEEZING Last Admin: 06/10/16 12:17 Dose: 1 amp Albuterol/Ipratropium (Duoneb -) 1 amp NEB QIDR [facility] Last Admin: 06/11/16 07:20 Dose: 1 amp Ascorbic Acid (Vitamin C -) 500 mg PO DAILY [facility] Last Admin: 06/11/16 09:08 Dose: 500 mg Carvedilol (Coreg -) 6.25 mg PO BID [facility] Last Admin: 06/11/16 09:08 Dose: 6.25 mg Ferrous Sulfate (Feosol -) 325 mg PO DAILY [facility] Last Admin: 06/11/16 09:08 Dose: 325 mg Methylprednisolone Sodium Succinate (Solu-Medrol -) 40 mg IVPB Q8H-IV [facility] Last Admin: 06/11/16 09:12 Dose: 40 mg Pantoprazole Sodium (Protonix -) 40 mg PO DAILY [facility] Last Admin: 06/11/16 09:08 Dose: 40 mg Constitutional: Yes: NAD Eyes: Yes: Conjunctiva Clear, EOM Intact HENT: Yes: Atraumatic, Normocephalic Neck: Yes: Supple, Trachea Midline Cardiovascular: Yes: Regular Rate and Rhythm Respiratory: Yes: Mild expiratory wheeze on the right, few scattered rhonchi ...Clubbing: No Gastrointestinal: Yes: Normal Bowel Sounds, Soft. No: Tenderness Edema: No Neurological: Yes: Alert, Oriented Labs: Laboratory Results - last 24 hr 06/10/16 06/10/16 06/10/16 08:14 09:50 16:00 WBC 7.7 RBC 2.82 L D Hgb 8.3 L D Hct 24.4 L D MCV 86.5 MCHC 34.0 RDW 16.5 H D Plt Count 215 MPV 8.8 Neutrophils % 85.1 H Lymphocytes % 7.6 L D Monocytes % 6.0 Eosinophils % 0.0 D Basophils % 1.3 Sodium 137 Potassium 4.5 Chloride 105 Carbon Dioxide 24 Anion Gap 8 BUN 67 H Creatinine 1.5 H Creat Clearance w eGFR 32.70 Random Glucose 179 H D Calcium 8.0 L Phosphorus 2.9 Magnesium Iron TIBC Iron Saturation Ferritin Total Bilirubin 0.6 D AST 8 L D ALT 9 L Alkaline Phosphatase 67 Serum Total Protein Total Protein 5.9 L Albumin 2.7 L Globulin Albumin/Globulin Ratio Sivxe-7-Eyowdfanz Adcmt-6-Grmjmcate (%) Wdxhk-3-Hzzedapgi Klkfe-0-Vwguuobwk (%) Beta Globulins Beta Globulins (%) Gamma Globulins Gamma Globulins (%) M-Rob % Vitamin B12 Folate Folate Hemolysate TSH Free T4 Urine Color Ltyellow Urine Appearance Clear Urine pH 5.0 Ur Specific Morris 1.012 Urine Protein Negative Urine Glucose (UA) Negative Urine Ketones Negative Urine Blood Negative Urine Nitrite Negative Urine Bilirubin Negative Urine Urobilinogen Negative Ur Leukocyte Esterase 1+ H D Urine RBC None Urine WBC 14 Ur Epithelial Cells Rare Urine Bacteria Many Urine Mucus Rare U Random Total Protein Urine Creatinine Protein/Creatinin Ratio Urine Total Protein Urine PEP Interpret Stool Occult Blood IgG IgA IgM ELIS M-Rob ELIS Comments Serum ELIS Interpret Ref Test Comments 06/10/16 06/10/16 06/11/16 16:00 20:00 06:20 WBC 5.9 RBC 2.71 L Hgb 7.9 L Hct 23.9 L MCV 88.1 MCHC 33.1 RDW 16.7 H Plt Count 213 MPV 9.0 Neutrophils % 91.8 H Lymphocytes % 5.2 L D Monocytes % 2.8 L Eosinophils % 0.0 Basophils % 0.2 Sodium Potassium Chloride Carbon Dioxide Anion Gap BUN Creatinine Creat Clearance w eGFR Random Glucose Calcium Phosphorus Magnesium Iron TIBC Iron Saturation Ferritin Total Bilirubin AST ALT Alkaline Phosphatase Serum Total Protein Total Protein Albumin Globulin Albumin/Globulin Ratio Rjgxp-1-Zkofexnbr Jmnbq-8-Iqhynpwtv (%) Oihwq-0-Vumnrsqdt Hmwhd-4-Hslcbgjpl (%) Beta Globulins Beta Globulins (%) Gamma Globulins Gamma Globulins (%) M-Rob % Vitamin B12 Folate Folate Hemolysate TSH Free T4 Urine Color Urine Appearance Urine pH Ur Specific Morris Urine Protein Urine Glucose (UA) Urine Ketones Urine Blood Urine Nitrite Urine Bilirubin Urine Urobilinogen Ur Leukocyte Esterase Urine RBC Urine WBC Ur Epithelial Cells Urine Bacteria Urine Mucus U Random Total Protein 11 Urine Creatinine 64.8 Protein/Creatinin Ratio 0.169 Urine Total Protein Urine PEP Interpret Stool Occult Blood Positive IgG IgA IgM ELIS M-Rob ELIS Comments Serum ELIS Interpret Ref Test Comments 06/11/16 06/11/16 06/11/16 06:20 06:20 06:20 WBC RBC Hgb Hct Cancelled MCV MCHC RDW Plt Count MPV Neutrophils % Lymphocytes % Monocytes % Eosinophils % Basophils % Sodium 139 Potassium 5.3 H Chloride 107 Carbon Dioxide 23 Anion Gap 9 BUN 70 H Creatinine 1.6 H Creat Clearance w eGFR 30.35 Random Glucose 191 H Calcium 8.5 Phosphorus 3.3 Magnesium 2.5 H D Iron Cancelled TIBC Cancelled Iron Saturation Cancelled Ferritin 36.935 Total Bilirubin 0.3 D AST 9 L ALT 9 L Alkaline Phosphatase 60 Serum Total Protein Cancelled Total Protein 5.5 L Albumin 2.7 L Cancelled Globulin Cancelled Albumin/Globulin Ratio Cancelled Ohaet-5-Iucktlqet Cancelled Rudtp-0-Wbluqfssq (%) Cancelled Clqjc-5-Clpfmtdfz Cancelled Rkkhg-7-Shuyxumnt (%) Cancelled Beta Globulins Cancelled Beta Globulins (%) Cancelled Gamma Globulins Cancelled Gamma Globulins (%) Cancelled M-Rob % Cancelled Vitamin B12 1203 H Folate Cancelled Folate Hemolysate Cancelled TSH 0.28 L D Free T4 1.06 Urine Color Urine Appearance Urine pH Ur Specific Morris Urine Protein Urine Glucose (UA) Urine Ketones Urine Blood Urine Nitrite Urine Bilirubin Urine Urobilinogen Ur Leukocyte Esterase Urine RBC Urine WBC Ur Epithelial Cells Urine Bacteria Urine Mucus U Random Total Protein Urine Creatinine Protein/Creatinin Ratio Urine Total Protein Cancelled Urine PEP Interpret Cancelled Stool Occult Blood IgG Cancelled IgA Cancelled IgM Cancelled ELIS M-Rob Cancelled ELIS Comments Cancelled Serum ELIS Interpret Cancelled Ref Test Comments Cancelled Problem List - Problems (1) COPD exacerbation Code(s): J44.1 - CHRONIC OBSTRUCTIVE PULMONARY DISEASE W (ACUTE) EXACERBATION (2) Left ventricular diastolic dysfunction Code(s): I51.9 - HEART DISEASE, UNSPECIFIED (3) Mitral regurgitation Code(s): I34.0 - NONRHEUMATIC MITRAL (VALVE) INSUFFICIENCY (4) Mitral valve prolapse Code(s): I34.1 - NONRHEUMATIC MITRAL (VALVE) PROLAPSE (5) Anemia Code(s): D64.9 - ANEMIA, UNSPECIFIED Qualifiers: Anemia type: unspecified type Qualified Code(s): D64.9 - Anemia, unspecified (6) Chronic kidney disease (CKD) Code(s): N18.9 - CHRONIC KIDNEY DISEASE, UNSPECIFIED Qualifiers: Chronic kidney disease stage: stage 2 (mild) Qualified Code(s): N18.2 - Chronic kidney disease, stage 2 (mild) Assessment/Plan Acute COPD Exacerbation LV Diastolic Dysfunction Mitral Regurgitation/Mitral Valve Prolapse HTN GERD - D/C IV medrol per patient request -> she is willing to take a prednisone taper - inhaled bronchodilators standing and PRN - O2 to keep Spo2 >90% - should be on LABA/ICS when ready for discharge - outpatient PFTs - DVT/GI prophylaxis - If she remains stable -> No Pulmonary contraindication for possible D/C later today or by tomorrow Dr Liu
--- NOTE | 2016-06-11 10:02 | PN ---
Progress Note, Physician Chief Complaint: Pt awake alert Sob Improved Pt has 2 units of PRBC Renal note appreciated GI and Hematology and pul consult appreciated rpt hb shows 7.9 - Current Medication List Current Medications: Active Medications Albuterol Sulfate (Ventolin 0.083% Nebulizer Soln -) 1 amp NEB Q6H PRN PRN Reason: SHORT OF BREATH/WHEEZING Last Admin: 06/10/16 12:17 Dose: 1 amp Albuterol/Ipratropium (Duoneb -) 1 amp NEB QIDR [facility] Last Admin: 06/11/16 07:20 Dose: 1 amp Ascorbic Acid (Vitamin C -) 500 mg PO DAILY [facility] Last Admin: 06/11/16 09:08 Dose: 500 mg Carvedilol (Coreg -) 6.25 mg PO BID [facility] Last Admin: 06/11/16 09:08 Dose: 6.25 mg Ferrous Sulfate (Feosol -) 325 mg PO DAILY [facility] Last Admin: 06/11/16 09:08 Dose: 325 mg Pantoprazole Sodium (Protonix -) 40 mg PO DAILY [facility] Last Admin: 06/11/16 09:08 Dose: 40 mg Prednisone (Deltasone -) 40 mg PO DAILY [facility] Stop: 06/16/16 09:59 - Objective Vital Signs: Vital Signs Temperature 98 F 06/11/16 06:39 Pulse Rate 80 06/11/16 06:39 Respiratory Rate 18 06/11/16 06:39 Blood Pressure 110/59 06/11/16 06:39 O2 Sat by Pulse Oximetry (%) 97 06/10/16 23:00 Constitutional: Yes: No Distress Eyes: Yes: Conjunctiva Clear HENT: Yes: Atraumatic, Normocephalic Neck: Yes: Supple, Trachea Midline Cardiovascular: Yes: Regular Rate and Rhythm Respiratory: Yes: Regular Gastrointestinal: Yes: Normal Bowel Sounds, Soft Musculoskeletal: Yes: WNL Peripheral Pulses WNL: Yes Neurological: Yes: WNL, Alert Psychiatric: Yes: Alert Labs: CBC, BMP 06/11/16 06:20 06/11/16 06:20 Assessment/Plan SOB COPD exacerbation Anemia Viral syndtome HTN H/O chf Hypercholestrolemia PLAN Continue Albuterol nebulising treatment Diovan and aldactone on hold as per renal will f/u cardioplogy,pul and GI rec will monitor CBC
--- NOTE | 2016-06-11 10:23 | PN ---
Progress Note (short form) - Note Progress Note: Renal follow up for CORONA/CKD Pt [facility] feels better today no chest pain or sob Vital Signs Temperature 98 F 06/11/16 06:39 Pulse Rate 80 06/11/16 06:39 Respiratory Rate 18 06/11/16 06:39 Blood Pressure 110/59 06/11/16 06:39 O2 Sat by Pulse Oximetry (%) 97 06/10/16 23:00 Intake & Output 06/08/16 06/09/16 06/10/16 06/11/16 23:59 23:59 23:59 23:59 Intake Total 600 810 120 Balance 600 810 120 Weight 136 lb 136 lb Gen: NAD, awake and alert CVS: RRR, No M/R Lungs: dec BS, no rales or wheeze Abd: soft NT/ND Ext: No edema, clubbing or cyanosis CBC, BMP 06/11/16 06:20 06/11/16 06:20 Current Medications Albuterol Sulfate (Ventolin 0.083% Nebulizer Soln -) 1 amp NEB Q6H PRN PRN Reason: SHORT OF BREATH/WHEEZING Last Admin: 06/10/16 12:17 Dose: 1 amp Albuterol/Ipratropium (Duoneb -) 1 amp NEB QIDR [facility] Last Admin: 06/11/16 07:20 Dose: 1 amp Ascorbic Acid (Vitamin C -) 500 mg PO DAILY [facility] Last Admin: 06/11/16 09:08 Dose: 500 mg Carvedilol (Coreg -) 6.25 mg PO BID [facility] Last Admin: 06/11/16 09:08 Dose: 6.25 mg Ferrous Sulfate (Feosol -) 325 mg PO DAILY [facility] Last Admin: 06/11/16 09:08 Dose: 325 mg Pantoprazole Sodium (Protonix -) 40 mg PO DAILY [facility] Last Admin: 06/11/16 09:08 Dose: 40 mg Prednisone (Deltasone -) 40 mg PO DAILY [facility] Stop: 06/16/16 09:59 Sodium Polystyrene Sulfonate (Kayexalate -) 15 gm PO ONCE ONE Stop: 06/11/16 10:31 A/P 89 year old woman with PMhx of CHF, COPD, Hypertension, Hyperlipidemia, CKD stage 3 who presented with cough/body aches x 1 week and found to have acute on chronic anemia and BUN/Cr of 72/1.8. #Acute vs. Chronic renal insufficiency Baseline Cr values 1.4-1.6 Cr improved to near baseline High BUN this admission likely multifactorial form diuretics + GI bleed NO uremic symptoms at this time holding BARBI/Aldactone/Lasix Trend renal function and weights no indication for dialysis #acute on chronic anemia s/p prbc transfusion GI eval - for capsule study Heme following #Hypertension BP at goal Hold Valsartan and Aldactone for now Goal BP < 140/90 #Hx of CHF no signs of acute decompensation Cardiology follow up holding lasix for now Todd Roy DO
[2016-06-11] MEDS ORDERED: SODIUM POLYSTYRENE SULFONATE 15 GM/60 ML BOTTLE PO ONE (10:30)
--- NOTE | 2016-06-11 10:58 | PN ---
Progress Note, Physician Chief Complaint: Events noted Feels better today Less SOB Denies chest pain History of Present Illness: Patient was seen and examined. Awake and alert. Chart was reviewed As outlined. Less dyspneic and currently appears comfortable - Current Medication List Current Medications: Active Medications Albuterol Sulfate (Ventolin 0.083% Nebulizer Soln -) 1 amp NEB Q6H PRN PRN Reason: SHORT OF BREATH/WHEEZING Last Admin: 06/10/16 12:17 Dose: 1 amp Albuterol/Ipratropium (Duoneb -) 1 amp NEB QIDR [facility] Last Admin: 06/11/16 07:20 Dose: 1 amp Ascorbic Acid (Vitamin C -) 500 mg PO DAILY [facility] Last Admin: 06/11/16 09:08 Dose: 500 mg Carvedilol (Coreg -) 6.25 mg PO BID [facility] Last Admin: 06/11/16 09:08 Dose: 6.25 mg Ferrous Sulfate (Feosol -) 325 mg PO DAILY [facility] Last Admin: 06/11/16 09:08 Dose: 325 mg Pantoprazole Sodium (Protonix -) 40 mg PO DAILY [facility] Last Admin: 06/11/16 09:08 Dose: 40 mg Prednisone (Deltasone -) 40 mg PO DAILY [facility] Stop: 06/16/16 10:59 - Objective Vital Signs: Vital Signs Temperature 98 F 06/11/16 06:39 Pulse Rate 80 06/11/16 06:39 Respiratory Rate 18 06/11/16 06:39 Blood Pressure 110/59 06/11/16 06:39 O2 Sat by Pulse Oximetry (%) 97 06/10/16 23:00 Neck: Yes: Supple Cardiovascular: Yes: Regular Rate and Rhythm, Murmur (2/6 SM), S1, S2 Respiratory: Yes: Diminished Gastrointestinal: Yes: Normal Bowel Sounds, Soft. No: Tenderness Edema: No Labs: CBC, BMP 06/11/16 06:20 06/11/16 06:20 Problem List - Problems (1) Anemia Code(s): D64.9 - ANEMIA, UNSPECIFIED Qualifiers: Anemia type: unspecified type Qualified Code(s): D64.9 - Anemia, unspecified (2) COPD exacerbation Code(s): J44.1 - CHRONIC OBSTRUCTIVE PULMONARY DISEASE W (ACUTE) EXACERBATION (3) Left ventricular diastolic dysfunction Code(s): I51.9 - HEART DISEASE, UNSPECIFIED (4) Mitral regurgitation Code(s): I34.0 - NONRHEUMATIC MITRAL (VALVE) INSUFFICIENCY Qualifiers: Cardiac valve disease etiology: nonrheumatic Qualified Code(s): I34.0 - Nonrheumatic mitral (valve) insufficiency (5) Acute on chronic diastolic (congestive) heart failure Code(s): I50.33 - ACUTE ON CHRONIC DIASTOLIC (CONGESTIVE) HEART FAILURE (6) Acute on chronic renal insufficiency Code(s): N28.9 - DISORDER OF KIDNEY AND URETER, UNSPECIFIED N18.9 - CHRONIC KIDNEY DISEASE, UNSPECIFIED (7) Hypertensive cardiovascular disease Code(s): I11.9 - HYPERTENSIVE HEART DISEASE WITHOUT HEART FAILURE Qualifiers: Heart failure presence: without heart failure Qualified Code(s): I11.9 - Hypertensive heart disease without heart failure (8) Mitral valve prolapse Code(s): I34.1 - NONRHEUMATIC MITRAL (VALVE) PROLAPSE Assessment/Plan 1. Acute exacerbation of COPD/acute on chronic bronchitis 2. CAD angina pectoris, stable 3. Chronic LV diastolic dysfunction 4. MVP with moderate to severe mitral valve regurgitation 5. HTN/HCVD 6. Anemia probable GI blood loss and small bowel AVM post transfusion - await outpatient capsule endoscopy 7. Acute on CKD PLAN: 1. Bronchodilator, O2 and Prednisone with GI protection 2. Continue Carvedilol 6.25 mg BID. Diovan and Aldactone are to be resumed once renal function stabilizes 3. Hold ASA pending completion of GI evaluation, monitor Hgb and transfuse PRBC to keep HCT > 30 4. Diuretics as needed Further plans are to follow Chad Valdes MD
[2016-06-11] MEDS: predniSONE 20 MG TABLET (UD) PO SCH (11:29)
--- NOTE | 2016-06-11 13:26 | PN ---
GI Progress Note Subjective: States SOB improved Still with cough - Objective Vital Signs: Vital Signs Temperature 98.4 F 06/11/16 08:14 Pulse Rate 78 06/11/16 08:14 Respiratory Rate 18 06/11/16 09:00 Blood Pressure 150/54 06/11/16 08:14 O2 Sat by Pulse Oximetry (%) 97 06/11/16 09:00 Constitutional: Calm Eyes: No: Sclera Icterus Cardiovascular: Yes: Regular Rate and Rhythm Respiratory: Yes: Rhonchi (right base > left), Wheezes Gastrointestinal Inspection: No: Distention ...Auscultate: Yes: Normoactive Bowel Sounds ...Palpate: Yes: Guarding. No: Tenderness Edema: Yes (trace b/l) Labs: CBC, BMP 06/11/16 06:20 06/11/16 06:20 Problem List - Problems (1) Anemia Assessment/Plan: Hemodynamically stable H/H has come down. Ideally would prefer having her undergo capsule endoscopy prior to repeat endoscopic procedures to help localize potential small bowel bleeding source given her respiratory issues. If h/h stabilizes can be attempted as an outpatient otherwise could see if a transfer to a hospital with inpatient caspsule capability. I put a call out to Dr. Lissy Martinez from [facility] to discuss this further. Monitor H/H PPI Code(s): D64.9 - ANEMIA, UNSPECIFIED Qualifiers: Anemia type: unspecified type Qualified Code(s): D64.9 - Anemia, unspecified
[2016-06-12] MEDS: ALBUTEROL SO4 2.5/IPRATROPIUM 0.5 INH SOL 3 ML VIAL.NEB. NEB SCH ×5 (00:05→23:24)
[2016-06-12 00:06] LABS: A/G RATIO 0.9 (0.7-1.7); ALBUMIN 2.5 g/dL (2.9-4.4); GLOBULIN, TOTAL 2.9 g/dL (2.2-3.9); M-SPIKE Not Observed g/dL (Not Observed); TOTAL PROTEIN 5.4 g/dL (6.0-8.5)
[2016-06-12 06:06] LABS: SERUM IRON 25 ug/dL (27-139); TOTAL IRON BINDING CAPACITY 281 ug/dL (250-450); UIBC 256 ug/dL (118-369)
[2016-06-12 07:57] LABS: BASOPHIL 0.2 % (0-2.0); MCH 29.3 pg (25.7-33.7); MCHC 32.8 g/dl (32.0-36.0); MEAN CELL VOLUME 89.2 fl (80-96); MEAN PLT VOLUME 9.3 fl (7.5-11.1); NEUTROPHILS 90.1 % (42.8-82.8); PLATELET COUNT 288 K/MM3 (134-434); RDW 16.6 % (11.6-15.6); WHITE BLOOD COUNT 11.4 K/mm3 (4.0-10.0)
[2016-06-12 08:38] LABS: ALBUMIN 2.8 g/dl (3.4-5.0); CALCIUM 8.6 mg/dL (8.5-10.1); CREATININE 1.7 mg/dL (0.55-1.02); MAGNESIUM 2.5 mg/dL (1.8-2.4); PHOSPHOROUS 3.6 mg/dL (2.5-4.9)
[2016-06-12 08:40] LABS: BILIRUBIN,TOTAL 0.5 mg/dL (0.2-1.0); TOT PROT 5.7 g/dl (6.4-8.2)
--- NOTE | 2016-06-12 09:44 | PN ---
Progress Note, Physician Chief Complaint: Pt awake alert Sob Improved Pt has 2 units of PRBC Renal note appreciated GI and Hematology and pul consult appreciated rpt hb shows 8.9,hct 27.1 - Current Medication List Current Medications: Active Medications Albuterol Sulfate (Ventolin 0.083% Nebulizer Soln -) 1 amp NEB Q6H PRN PRN Reason: SHORT OF BREATH/WHEEZING Last Admin: 06/10/16 12:17 Dose: 1 amp Albuterol/Ipratropium (Duoneb -) 1 amp NEB QIDR [facility] Last Admin: 06/12/16 07:39 Dose: 1 amp Ascorbic Acid (Vitamin C -) 500 mg PO DAILY [facility] Last Admin: 06/11/16 09:08 Dose: 500 mg Carvedilol (Coreg -) 6.25 mg PO BID [facility] Last Admin: 06/11/16 21:45 Dose: 6.25 mg Ferrous Sulfate (Feosol -) 325 mg PO DAILY [facility] Last Admin: 06/11/16 09:08 Dose: 325 mg Pantoprazole Sodium (Protonix -) 40 mg PO DAILY [facility] Last Admin: 06/11/16 09:08 Dose: 40 mg Prednisone (Deltasone -) 40 mg PO DAILY [facility] Stop: 06/16/16 10:59 Last Admin: 06/11/16 11:29 Dose: 40 mg - Objective Vital Signs: Vital Signs Temperature 98.4 F 06/12/16 05:54 Pulse Rate 70 06/12/16 05:54 Respiratory Rate 20 06/12/16 05:54 Blood Pressure 125/54 06/12/16 05:54 O2 Sat by Pulse Oximetry (%) 97 06/11/16 21:00 Constitutional: Yes: No Distress Eyes: Yes: Conjunctiva Clear HENT: Yes: Atraumatic, Normocephalic Neck: Yes: Supple, Trachea Midline Cardiovascular: Yes: Regular Rate and Rhythm Respiratory: Yes: Regular, Diminished (lung base,occasional wheeze) Gastrointestinal: Yes: Normal Bowel Sounds, Soft Musculoskeletal: Yes: WNL Extremities: Yes: WNL Peripheral Pulses WNL: Yes Neurological: Yes: WNL, Alert, Oriented Psychiatric: Yes: Alert Labs: CBC, BMP 06/12/16 06:30 06/12/16 06:30 Laboratory Results - last 24 hr 06/10/16 06/11/16 06/12/16 09:50 06:20 06:30 WBC 11.4 H D RBC 3.04 L Hgb 8.9 L D Hct 27.1 L MCV 89.2 MCHC 32.8 RDW 16.6 H Plt Count 288 D MPV 9.3 Neutrophils % 90.1 H Lymphocytes % 4.2 L Monocytes % 5.5 D Eosinophils % 0.0 Basophils % 0.2 Sodium Potassium Chloride Carbon Dioxide Anion Gap BUN Creatinine Creat Clearance w eGFR Random Glucose Calcium Phosphorus Magnesium Iron 25 L TIBC 281 Iron Saturation 9 L Total Bilirubin AST ALT Alkaline Phosphatase Prot Electrophoresis Serum Total Protein 5.4 L Total Protein Albumin 2.5 L Globulin 2.9 Albumin/Globulin Ratio 0.9 Ezdgu-9-Rcapsmxma 0.3 Nyrhz-9-Yuzabuhly (%) Cancelled Cancelled Prxyg-8-Eakjuwufm 0.9 Etkll-4-Zipyytull (%) Cancelled Cancelled Beta Globulins 1.0 Beta Globulins (%) Cancelled Cancelled Gamma Globulins 0.7 Gamma Globulins (%) Cancelled Cancelled M-Rob % Cancelled Cancelled ELIS M-Rob Not observed Serum ELIS Interpret Travel Insurance Agent Ref Test Comments Cancelled Cancelled 06/12/16 06:30 WBC RBC Hgb Hct MCV MCHC RDW Plt Count MPV Neutrophils % Lymphocytes % Monocytes % Eosinophils % Basophils % Sodium 134 L Potassium 4.5 Chloride 106 Carbon Dioxide 23 Anion Gap 5 L BUN 63 H Creatinine 1.7 H Creat Clearance w eGFR 28.30 Random Glucose 139 H D Calcium 8.6 Phosphorus 3.6 Magnesium 2.5 H Iron TIBC Iron Saturation Total Bilirubin 0.5 D AST 8 L ALT 8 L Alkaline Phosphatase 56 Prot Electrophoresis Serum Total Protein Total Protein 5.7 L Albumin 2.8 L Globulin Albumin/Globulin Ratio Rjvzp-7-Nbdklsnpn Lslnf-4-Zoihhswrw (%) Pkjjs-6-Codsmygfh Ftphy-6-Dyabmrvbi (%) Beta Globulins Beta Globulins (%) Gamma Globulins Gamma Globulins (%) M-Rob % ELIS M-Rob Serum ELIS Interpret Ref Test Comments Assessment/Plan SOB COPD exacerbation Anemia Viral syndtome HTN H/O chf Hypercholestrolemia PLAN Continue Albuterol nebulising treatment Diovan and aldactone on hold as per renal will f/u cardioplogy,pul and GI rec will monitor CBC
[2016-06-12] MEDS ORDERED: PT OWN MED DRAWER 7, Y5N ONE (10:12)
[2016-06-12] MEDS: CARVEDILOL 6.25 MG TABLET (FP) PO SCH ×2 (10:18→21:56)
[2016-06-12] MEDS: predniSONE 20 MG TABLET (UD) PO SCH (10:18)
[2016-06-12] MEDS: FERROUS SO4 325 MG TABLET (FP) PO SCH (10:19)
[2016-06-12] MEDS: PANTOPRAZOLE 40 MG TABLET (FP) PO SCH (10:19)
[2016-06-12] MEDS: ASCORBIC ACID 500 MG TABLET (FP) PO SCH (10:19)
--- NOTE | 2016-06-12 12:49 | PN ---
Progress Note (short form) - Note Progress Note: Renal follow up for CORONA/CKD [facility] no complaints denies sob, chest pain good urine output good oral intake Vital Signs Temperature 97.5 F L 06/12/16 09:00 Pulse Rate 74 06/12/16 09:00 Respiratory Rate 18 06/12/16 09:00 Blood Pressure 152/86 06/12/16 09:00 O2 Sat by Pulse Oximetry (%) 100 06/12/16 09:00 Intake & Output 06/09/16 06/10/16 06/11/16 06/12/16 23:59 23:59 23:59 23:59 Intake Total 666 162 6469 Balance 278 932 0586 Weight 136 lb 136 lb Gen: NAD, awake and alert CVS: RRR, No M/R Lungs: dec BS, no rales or wheeze Abd: soft NT/ND Ext: Trace edema by the ankles CBC, BMP 06/12/16 06:30 06/12/16 06:30 Current Medications Albuterol Sulfate (Ventolin 0.083% Nebulizer Soln -) 1 amp NEB Q6H PRN PRN Reason: SHORT OF BREATH/WHEEZING Last Admin: 06/10/16 12:17 Dose: 1 amp Albuterol/Ipratropium (Duoneb -) 1 amp NEB QIDR [facility] Last Admin: 06/12/16 11:47 Dose: Not Given Ascorbic Acid (Vitamin C -) 500 mg PO DAILY [facility] Last Admin: 06/12/16 10:19 Dose: 500 mg Carvedilol (Coreg -) 6.25 mg PO BID [facility] Last Admin: 06/12/16 10:18 Dose: 6.25 mg Ferrous Sulfate (Feosol -) 325 mg PO DAILY [facility] Last Admin: 06/12/16 10:19 Dose: 325 mg Pantoprazole Sodium (Protonix -) 40 mg PO DAILY [facility] Last Admin: 06/12/16 10:19 Dose: 40 mg Prednisone (Deltasone -) 40 mg PO DAILY [facility] Stop: 06/16/16 10:59 Last Admin: 06/12/16 10:18 Dose: 40 mg A/P 89 year old woman with PMhx of CHF, COPD, Hypertension, Hyperlipidemia, CKD stage 3 who presented with cough/body aches x 1 week and found to have acute on chronic anemia and BUN/Cr of 72/1.8. #Acute vs. Chronic renal insufficiency Baseline Cr values 1.4-1.6 Renal function essentially stable no signs of uremia despite high BUN off diuretics and ARB at this time would continue to hold the ARB as bp is acceptable Lasix PRN for sob or worsening edema pt will need close follow up as outpatient #acute on chronic anemia s/p prbc transfusion GI eval - for capsule study Heme following Will give Procrit 07436 units SC x 1 (can be redosed as outpatient) #Hypertension BP at goal Hold Valsartan and Aldactone for now Goal BP < 140/90 #Hx of CHF no signs of acute decompensation Cardiology follow up Lasix PRN Todd Roy DO
--- NOTE | 2016-06-12 13:47 | PN ---
Progress Note, Physician History of Present Illness: Dyspnea resolved. - Current Medication List Current Medications: Active Medications Albuterol Sulfate (Ventolin 0.083% Nebulizer Soln -) 1 amp NEB Q6H PRN PRN Reason: SHORT OF BREATH/WHEEZING Last Admin: 06/10/16 12:17 Dose: 1 amp Albuterol/Ipratropium (Duoneb -) 1 amp NEB QIDR [facility] Last Admin: 06/12/16 11:47 Dose: Not Given Ascorbic Acid (Vitamin C -) 500 mg PO DAILY [facility] Last Admin: 06/12/16 10:19 Dose: 500 mg Carvedilol (Coreg -) 6.25 mg PO BID [facility] Last Admin: 06/12/16 10:18 Dose: 6.25 mg Epoetin Chuy (Epogen -) 20,000 units SQ ONCE ONE Stop: 06/12/16 12:51 Ferrous Sulfate (Feosol -) 325 mg PO DAILY [facility] Last Admin: 06/12/16 10:19 Dose: 325 mg Pantoprazole Sodium (Protonix -) 40 mg PO DAILY [facility] Last Admin: 06/12/16 10:19 Dose: 40 mg Prednisone (Deltasone -) 40 mg PO DAILY [facility] Stop: 06/16/16 10:59 Last Admin: 06/12/16 10:18 Dose: 40 mg - Objective Vital Signs: Vital Signs Temperature 97.5 F L 06/12/16 09:00 Pulse Rate 74 06/12/16 09:00 Respiratory Rate 18 06/12/16 09:00 Blood Pressure 152/86 06/12/16 09:00 O2 Sat by Pulse Oximetry (%) 100 06/12/16 09:00 Constitutional: Yes: No Distress, Calm Neck: Yes: Supple Cardiovascular: Yes: Regular Rate and Rhythm, Murmur (2/6 SM) Respiratory: Yes: Regular, Diminished Gastrointestinal: Yes: Normal Bowel Sounds, Soft Edema: No Labs: CBC, BMP 06/12/16 06:30 06/12/16 06:30 Problem List - Problems (1) Anemia Code(s): D64.9 - ANEMIA, UNSPECIFIED Qualifiers: Anemia type: unspecified type Qualified Code(s): D64.9 - Anemia, unspecified (2) COPD exacerbation Code(s): J44.1 - CHRONIC OBSTRUCTIVE PULMONARY DISEASE W (ACUTE) EXACERBATION (3) Acute on chronic renal insufficiency Code(s): N28.9 - DISORDER OF KIDNEY AND URETER, UNSPECIFIED N18.9 - CHRONIC KIDNEY DISEASE, UNSPECIFIED (4) GI bleeding Code(s): K92.2 - GASTROINTESTINAL HEMORRHAGE, UNSPECIFIED Qualifiers: GI bleed type/associated pathology: angiodysplasia of stomach and duodenum Qualified Code(s): K31.811 - Angiodysplasia of stomach and duodenum with bleeding (5) Hypertensive cardiovascular disease Code(s): I11.9 - HYPERTENSIVE HEART DISEASE WITHOUT HEART FAILURE Qualifiers: Heart failure presence: without heart failure Qualified Code(s): I11.9 - Hypertensive heart disease without heart failure (6) Mitral valve prolapse Code(s): I34.1 - NONRHEUMATIC MITRAL (VALVE) PROLAPSE (7) Mitral regurgitation Code(s): I34.0 - NONRHEUMATIC MITRAL (VALVE) INSUFFICIENCY Qualifiers: Cardiac valve disease etiology: nonrheumatic Qualified Code(s): I34.0 - Nonrheumatic mitral (valve) insufficiency Assessment/Plan 10/19/2015 Echo: Normal biventricular size and fxn, severe MVP with severe MR, mod TR, severe pulm HTN, mod LAE 1. AE COPD, acute on chronic bronchitis 2. CAD angina pectoris, stable 3. Chronic LV diastolic dysfunction with 4. MVP with moderate to severe mitral regurgitation 5. HTN/HCVD 6. Anemia probable GI blood loss, small bowel AVM post transfusion, await outpatient capsule endoscopy 7. Acute on CKD improved PLAN: 1. BD, O2, Prednisone with GI protection as you are 2. Continue Carvedilol 6.25 bid. Resume Diovan 40 qd and Aldactone 25 qd as renal fxn stabilized 3. Hold ASA pending completion of GI evaluation, monitor Hgb post transfusion
[2016-06-12] MEDS ORDERED: EPOETIN ALFA 20,000 UNIT/1 ML VIAL SQ ONE (14:00)
[2016-06-12] MEDS: VALSARTAN 40 MG TABLET (FP) PO SCH (15:12)
[2016-06-12] MEDS: SPIRONOLACTONE 25 MG TABLET (FP) PO SCH (15:12)
--- NOTE | 2016-06-12 15:42 | PN ---
Progress Note, Physician Chief Complaint: PULMONARY ALERT,OOB-AMBULATING FEELING BETTER,LESS DYSPNEIC,+COUGH - Current Medication List Current Medications: Active Medications Albuterol Sulfate (Ventolin 0.083% Nebulizer Soln -) 1 amp NEB Q6H PRN PRN Reason: SHORT OF BREATH/WHEEZING Last Admin: 06/10/16 12:17 Dose: 1 amp Albuterol/Ipratropium (Duoneb -) 1 amp NEB QIDR [facility] Last Admin: 06/12/16 11:47 Dose: Not Given Ascorbic Acid (Vitamin C -) 500 mg PO DAILY [facility] Last Admin: 06/12/16 10:19 Dose: 500 mg Carvedilol (Coreg -) 6.25 mg PO BID [facility] Last Admin: 06/12/16 10:18 Dose: 6.25 mg Ferrous Sulfate (Feosol -) 325 mg PO DAILY [facility] Last Admin: 06/12/16 10:19 Dose: 325 mg Pantoprazole Sodium (Protonix -) 40 mg PO DAILY [facility] Last Admin: 06/12/16 10:19 Dose: 40 mg Prednisone (Deltasone -) 40 mg PO DAILY [facility] Stop: 06/16/16 10:59 Last Admin: 06/12/16 10:18 Dose: 40 mg Spironolactone (Aldactone -) 25 mg PO DAILY [facility] Last Admin: 06/12/16 15:12 Dose: 25 mg Valsartan (Diovan -) 40 mg PO DAILY [facility] Last Admin: 06/12/16 15:12 Dose: 40 mg - Objective Vital Signs: Vital Signs Temperature 98.0 F 06/12/16 15:17 Pulse Rate 72 06/12/16 15:17 Respiratory Rate 20 06/12/16 15:17 Blood Pressure 130/54 06/12/16 15:17 O2 Sat by Pulse Oximetry (%) 100 06/12/16 09:00 Constitutional: Yes: Well Nourished, Calm Eyes: Yes: WNL HENT: Yes: WNL Neck: Yes: WNL Cardiovascular: Yes: Regular Rate and Rhythm, S1, S2 Respiratory: Yes: Wheezes (FEW WHEEZES BILATERALLY) Gastrointestinal: Yes: Normal Bowel Sounds, Soft Extremities: Yes: WNL Edema: No Labs: CBC, BMP 06/12/16 06:30 06/12/16 06:30 Assessment/Plan Problem List - Problems (1) COPD exacerbation Code(s): J44.1 - CHRONIC OBSTRUCTIVE PULMONARY DISEASE W (ACUTE) EXACERBATION (2) Left ventricular diastolic dysfunction Code(s): I51.9 - HEART DISEASE, UNSPECIFIED (3) Mitral regurgitation Code(s): I34.0 - NONRHEUMATIC MITRAL (VALVE) INSUFFICIENCY (4) Mitral valve prolapse Code(s): I34.1 - NONRHEUMATIC MITRAL (VALVE) PROLAPSE (5) Anemia Code(s): D64.9 - ANEMIA, UNSPECIFIED Qualifiers: Anemia type: unspecified type Qualified Code(s): D64.9 - Anemia, unspecified (6) Chronic kidney disease (CKD) Code(s): N18.9 - CHRONIC KIDNEY DISEASE, UNSPECIFIED Qualifiers: Chronic kidney disease stage: stage 2 (mild) Qualified Code(s): N18.2 - Chronic kidney disease, stage 2 (mild) Assessment/Plan Acute COPD Exacerbation improving LV Diastolic Dysfunction Mitral Regurgitation/Mitral Valve Prolapse HTN GERD - rednisone - inhaled bronchodilators standing and PRN - O2 to keep Spo2 >90% - LABA/ICS when ready for discharge - outpt PFTs - DVT/GI prophylaxis DR MARTINEZ
--- NOTE | 2016-06-12 20:19 | PN ---
Progress Note (short form) - Note Progress Note: Patient seen and examined c/o tarry , lose BMs since starting PO iron Last Vital Signs Temp Pulse Resp BP Pulse Ox 97.7 F 20 L 92 H 133/51 100 06/12/16 17:15 06/12/16 17:15 06/12/16 17:15 06/12/16 17:15 06/12/16 09:00 HEENT: RAEANN, EOM Intact Cor: RSR, No murmurs, No gallops Lungs: Clear to P&A Abd: Soft, Normal bowel sounds, No organomegaly Ext:No significant edema Skin: No rashes, Integument intact Abnormal Lab Results 06/09/16 06/10/16 06/11/16 14:57 09:50 06:20 WBC RBC Hgb Hct RDW Neutrophils % Lymphocytes % Sodium Anion Gap BUN Creatinine Random Glucose Magnesium Iron 25 L Iron Saturation 9 L AST ALT Serum Total Protein 5.4 L Total Protein Albumin 2.5 L Crossmatch See Detail 06/12/16 06/12/16 06:30 06:30 WBC 11.4 H D RBC 3.04 L Hgb 8.9 L D Hct 27.1 L RDW 16.6 H Neutrophils % 90.1 H Lymphocytes % 4.2 L Sodium 134 L Anion Gap 5 L BUN 63 H Creatinine 1.7 H Random Glucose 139 H D Magnesium 2.5 H Iron Iron Saturation AST 8 L ALT 8 L Serum Total Protein Total Protein 5.7 L Albumin 2.8 L Crossmatch Current Medications Albuterol Sulfate (Ventolin 0.083% Nebulizer Soln -) 1 amp NEB Q6H PRN PRN Reason: SHORT OF BREATH/WHEEZING Last Admin: 06/10/16 12:17 Dose: 1 amp Albuterol/Ipratropium (Duoneb -) 1 amp NEB QIDR [facility] Last Admin: 06/12/16 16:45 Dose: 1 amp Ascorbic Acid (Vitamin C -) 500 mg PO DAILY [facility] Last Admin: 06/12/16 10:19 Dose: 500 mg Carvedilol (Coreg -) 6.25 mg PO BID [facility] Last Admin: 06/12/16 10:18 Dose: 6.25 mg Ferrous Sulfate (Feosol -) 325 mg PO DAILY [facility] Last Admin: 06/12/16 10:19 Dose: 325 mg Pantoprazole Sodium (Protonix -) 40 mg PO DAILY [facility] Last Admin: 06/12/16 10:19 Dose: 40 mg Prednisone (Deltasone -) 40 mg PO DAILY [facility] Stop: 06/16/16 10:59 Last Admin: 06/12/16 10:18 Dose: 40 mg Spironolactone (Aldactone -) 25 mg PO DAILY [facility] Last Admin: 06/12/16 15:12 Dose: 25 mg Valsartan (Diovan -) 40 mg PO DAILY [facility] Last Admin: 06/12/16 15:12 Dose: 40 mg A/P Acute COPD Exacerbation LV Diastolic Dysfunction Mitral Regurgitation/Mitral Valve Prolapse HTN GERD Anemia Anemia -- normocytic .s/p 1 unit PRBCs anemia of CKD + gi blood loss---stool occult +/IRon sat. low h/o colonoscopy /EGD --which were normal in 04/10 per patient. Was scheduled for capsule endoscopy this week on protoni.vit. c will d/c feosol will consider iv iron as patient with lose BMs on Po iron needs to f/u with gi team [id number]
[2016-06-13 00:06] LABS: A/G RATIO 0.9 (0.7-1.7); ALBUMIN 2.5 g/dL (2.9-4.4); ALPHA-1-GLOBULIN 0.3 g/dL (0.0-0.4); GAMMA GLOBULIN 0.7 g/dL (0.4-1.8); GLOBULIN, TOTAL 2.9 g/dL (2.2-3.9); M-SPIKE Not Observed g/dL (Not Observed); TOTAL PROTEIN 5.4 g/dL (6.0-8.5)
[2016-06-13] MEDS: ALBUTEROL SO4 2.5/IPRATROPIUM 0.5 INH SOL 3 ML VIAL.NEB. NEB SCH ×4 (06:09→23:02)
[2016-06-13 08:07] LABS: HEMATOCRIT 23.9 % (34.0-46.6)
[2016-06-13 08:21] LABS: ALBUMIN 2.4 g/dl (3.4-5.0); CALCIUM 8.2 mg/dL (8.5-10.1); CREATININE 1.5 mg/dL (0.55-1.02); MAGNESIUM 2.3 mg/dL (1.8-2.4); PHOSPHOROUS 2.9 mg/dL (2.5-4.9)
[2016-06-13 08:22] LABS: BILIRUBIN,TOTAL 0.2 mg/dL (0.2-1.0)
[2016-06-13 08:43] LABS: MCH 29.5 pg (25.7-33.7); MCHC 33.3 g/dl (32.0-36.0); MEAN CELL VOLUME 88.5 fl (80-96); MEAN PLT VOLUME 8.6 fl (7.5-11.1); PLATELET COUNT 244 K/MM3 (134-434); RDW 16.4 % (11.6-15.6); WHITE BLOOD COUNT 5.9 K/mm3 (4.0-10.0)
--- NOTE | 2016-06-13 09:15 | PN ---
Progress Note (short form) - Note Progress Note: Ambulating in the hallway with her walker. Breathing feels at baseline. Still with cough and able to mobilize secretions now, yellow/white. Intake & Output 06/10/16 06/11/16 06/12/16 06/13/16 23:59 23:59 23:59 23:59 Intake Total 810 1760 350 Output Total 2 Balance 810 1760 348 Weight 136 lb Last Vital Signs Temp Pulse Resp BP Pulse Ox 97.8 F 72 20 128/62 100 06/13/16 05:54 06/13/16 05:54 06/13/16 05:54 06/13/16 05:54 06/12/16 21:00 Active Medications Albuterol Sulfate (Ventolin 0.083% Nebulizer Soln -) 1 amp NEB Q6H PRN PRN Reason: SHORT OF BREATH/WHEEZING Last Admin: 06/10/16 12:17 Dose: 1 amp Albuterol/Ipratropium (Duoneb -) 1 amp NEB QIDR [facility] Last Admin: 06/13/16 06:09 Dose: 1 amp Ascorbic Acid (Vitamin C -) 500 mg PO DAILY [facility] Last Admin: 06/12/16 10:19 Dose: 500 mg Carvedilol (Coreg -) 6.25 mg PO BID [facility] Last Admin: 06/12/16 21:56 Dose: 6.25 mg Iron Sucrose 100 mg/ Sodium (Chloride) 100 mls @ 200 mls/hr IVPB ONCE ONE Stop: 06/13/16 10:29 Pantoprazole Sodium (Protonix -) 40 mg PO DAILY [facility] Last Admin: 06/12/16 10:19 Dose: 40 mg Prednisone (Deltasone -) 40 mg PO DAILY [facility] Stop: 06/16/16 10:59 Last Admin: 06/12/16 10:18 Dose: 40 mg Spironolactone (Aldactone -) 25 mg PO DAILY [facility] Last Admin: 06/12/16 15:12 Dose: 25 mg Valsartan (Diovan -) 40 mg PO DAILY [facility] Last Admin: 06/12/16 15:12 Dose: 40 mg Constitutional: Yes: NAD Eyes: Yes: Conjunctiva Clear, EOM Intact HENT: Yes: Atraumatic, Normocephalic Neck: Yes: Supple, Trachea Midline Cardiovascular: Yes: Regular Rate and Rhythm Respiratory: Yes: Mild expiratory SQUEAK on the right, few scattered rhonchi ...Clubbing: No Gastrointestinal: Yes: Normal Bowel Sounds, Soft. No: Tenderness Edema: No Neurological: Yes: Alert, Oriented Labs: Laboratory Results - last 24 hr 06/09/16 06/11/16 06/12/16 14:57 06:20 10:43 WBC RBC Hgb Hct 23.9 L MCV MCHC RDW Plt Count MPV Neutrophils % Lymphocytes % Sodium Potassium Chloride Carbon Dioxide Anion Gap BUN Creatinine Creat Clearance w eGFR Random Glucose Calcium Phosphorus Magnesium Total Bilirubin AST ALT Alkaline Phosphatase Serum Total Protein 5.4 L Total Protein Albumin 2.5 L Globulin 2.9 Albumin/Globulin Ratio 0.9 Qaawm-8-Rwnmkugow 0.3 Skuwh-3-Lkfdapqee 0.9 Beta Globulins 1.0 Gamma Globulins 0.7 Folate 1667 Folate Hemolysate 398.5 Ur Random Sodium 36 Ur Random Urea Nitrogn IgG 703 IgA 108 IgM 39 ELIS M-Rob Not observed ELIS Comments Serum ELIS Interpret Comment: Blood Type B NEGATIVE Antibody Screen Negative Crossmatch See Detail 06/12/16 06/13/16 06/13/16 10:43 06:00 06:00 WBC 5.9 D RBC 2.76 L Hgb 8.1 L Hct 24.4 L MCV 88.5 MCHC 33.3 RDW 16.4 H Plt Count 244 MPV 8.6 Neutrophils % Y Lymphocytes % Y Sodium 141 Potassium 4.4 Chloride 109 H Carbon Dioxide 23 Anion Gap 9 BUN 54 H Creatinine 1.5 H Creat Clearance w eGFR 32.70 Random Glucose 134 H Calcium 8.2 L Phosphorus 2.9 Magnesium 2.3 Total Bilirubin 0.2 D AST 4 L D ALT 8 L Alkaline Phosphatase 51 Serum Total Protein Total Protein 5.0 L Albumin 2.4 L Globulin Albumin/Globulin Ratio Hjqmb-2-Toponfbkp Iebeh-8-Aalkmgfur Beta Globulins Gamma Globulins Folate Folate Hemolysate Ur Random Sodium Ur Random Urea Nitrogn 725 IgG IgA IgM ELIS M-Rob ELIS Comments Serum ELIS Interpret Blood Type Antibody Screen Crossmatch Problem List - Problems (1) COPD exacerbation Code(s): J44.1 - CHRONIC OBSTRUCTIVE PULMONARY DISEASE W (ACUTE) EXACERBATION (2) Left ventricular diastolic dysfunction Code(s): I51.9 - HEART DISEASE, UNSPECIFIED (3) Mitral regurgitation Code(s): I34.0 - NONRHEUMATIC MITRAL (VALVE) INSUFFICIENCY (4) Mitral valve prolapse Code(s): I34.1 - NONRHEUMATIC MITRAL (VALVE) PROLAPSE (5) Anemia Code(s): D64.9 - ANEMIA, UNSPECIFIED Qualifiers: Anemia type: unspecified type Qualified Code(s): D64.9 - Anemia, unspecified (6) Chronic kidney disease (CKD) Code(s): N18.9 - CHRONIC KIDNEY DISEASE, UNSPECIFIED Qualifiers: Chronic kidney disease stage: stage 2 (mild) Qualified Code(s): N18.2 - Chronic kidney disease, stage 2 (mild) Assessment/Plan Acute COPD Exacerbation LV Diastolic Dysfunction Mitral Regurgitation/Mitral Valve Prolapse HTN GERD - Prednisone - inhaled bronchodilators standing and PRN - O2 to keep Spo2 >90% - should be on LABA/ICS when ready for discharge - outpatient PFTs - DVT/GI prophylaxis - Although she still has cough there is No Pulmonary contraindication for D/C - > will take several days for the cough to resolve Dr Liu
--- NOTE | 2016-06-13 09:47 | PN ---
Progress Note, Physician Chief Complaint: Pt awake alert Sob Improved pul note appreciated Renal note appreciated rpt hb shows 8.1hct 24.4 Po iron stopped,pt is getting IV iron as per pt ,she is getting Dark loose stool when she takes oral iron will discuss with GI regarding d/c planing - Current Medication List Current Medications: Active Medications Albuterol Sulfate (Ventolin 0.083% Nebulizer Soln -) 1 amp NEB Q6H PRN PRN Reason: SHORT OF BREATH/WHEEZING Last Admin: 06/10/16 12:17 Dose: 1 amp Albuterol/Ipratropium (Duoneb -) 1 amp NEB QIDR [facility] Last Admin: 06/13/16 06:09 Dose: 1 amp Ascorbic Acid (Vitamin C -) 500 mg PO DAILY [facility] Last Admin: 06/12/16 10:19 Dose: 500 mg Carvedilol (Coreg -) 6.25 mg PO BID [facility] Last Admin: 06/12/16 21:56 Dose: 6.25 mg Guaifenesin (Robitussin -) 10 ml PO Q4H PRN PRN Reason: COUGH Iron Sucrose 100 mg/ Sodium (Chloride) 100 mls @ 200 mls/hr IVPB ONCE ONE Stop: 06/13/16 10:29 Pantoprazole Sodium (Protonix -) 40 mg PO DAILY [facility] Last Admin: 06/12/16 10:19 Dose: 40 mg Prednisone (Deltasone -) 40 mg PO DAILY [facility] Stop: 06/16/16 10:59 Last Admin: 06/12/16 10:18 Dose: 40 mg Spironolactone (Aldactone -) 25 mg PO DAILY [facility] Last Admin: 06/12/16 15:12 Dose: 25 mg Valsartan (Diovan -) 40 mg PO DAILY [facility] Last Admin: 06/12/16 15:12 Dose: 40 mg - Objective Vital Signs: Vital Signs Temperature 97.8 F 06/13/16 05:54 Pulse Rate 72 06/13/16 05:54 Respiratory Rate 20 06/13/16 05:54 Blood Pressure 128/62 06/13/16 05:54 O2 Sat by Pulse Oximetry (%) 100 06/12/16 21:00 Constitutional: Yes: No Distress Eyes: Yes: Conjunctiva Clear HENT: Yes: Atraumatic Cardiovascular: Yes: Regular Rate and Rhythm Respiratory: Yes: Regular, Wheezes (occasionally) Gastrointestinal: Yes: Normal Bowel Sounds Musculoskeletal: Yes: WNL Extremities: Yes: WNL Edema: No Peripheral Pulses WNL: Yes Neurological: Yes: WNL Psychiatric: Yes: WNL, Alert Labs: CBC, BMP 06/13/16 06:00 06/13/16 06:00 Assessment/Plan SOB COPD exacerbation,cough Anemia Viral syndtome improved HTN H/O chf Hypercholestrolemia PLAN Continue Albuterol nebulising treatment GI trying to arrange capsule endoscopy to locate the source of bleeding will monitor cbc
[2016-06-13] MEDS ORDERED: PT OWN MED DRAWER 7, Y5N ONE (09:53)
[2016-06-13] MEDS: SPIRONOLACTONE 25 MG TABLET (FP) PO SCH (09:58)
[2016-06-13] MEDS: predniSONE 20 MG TABLET (UD) PO SCH (09:59)
[2016-06-13] MEDS: ASCORBIC ACID 500 MG TABLET (FP) PO SCH (09:59)
[2016-06-13] MEDS: VALSARTAN 40 MG TABLET (FP) PO SCH (09:59)
[2016-06-13] MEDS: PANTOPRAZOLE 40 MG TABLET (FP) PO SCH (09:59)
[2016-06-13] MEDS: CARVEDILOL 6.25 MG TABLET (FP) PO SCH ×2 (09:59→21:15)
[2016-06-13] MEDS ORDERED: IRON SUCROSE INJECTION 100 MG in SODIUM CHLORIDE 95 ML IVPB ONE (10:00)
--- NOTE | 2016-06-13 11:57 | PN ---
GI Progress Note Subjective: Persistent cough since 3 yesterday + black BM's - Objective Vital Signs: Vital Signs Temperature 97.8 F 06/13/16 05:54 Pulse Rate 72 06/13/16 05:54 Respiratory Rate 20 06/13/16 05:54 Blood Pressure 128/62 06/13/16 05:54 O2 Sat by Pulse Oximetry (%) 100 06/12/16 21:00 Constitutional: Calm Eyes: No: Sclera Icterus Cardiovascular: Yes: Regular Rate and Rhythm Respiratory: Yes: Rhonchi (right lung base), Wheezes (bilaterally) Gastrointestinal Inspection: No: Distention ...Auscultate: Yes: Normoactive Bowel Sounds ...Palpate: No: Tenderness Edema: Yes (trace b/l LE edema) Neurological: Yes: Alert, Oriented Labs: CBC, BMP 06/13/16 06:00 06/13/16 06:00 Problem List - Problems (1) Anemia Assessment/Plan: Continued decrease in H/H with black BM's. Suspect secondary to occult bleeding and iron supplementation. Off PO iron now and receiving IV. Given her continued pulmonary issues and the fact that she remains hemodynamically stable, I feel that capsule endoscopy would be a good next step to help localize a potential source of bleeding prior to subjecting her to more prolonged sedation (ie for push enteroscopy or double balloon enteroscopy at a tertiary care center). She was unable to make it to her scheduled office visit this past friday with Dr. Mane for capsule endoscopy/ Dr. Martinez from [facility] is on maternity leave until the spring. I put a call out to Dr. Hipolito Conti from [facility] to discuss case and see in inpatient capsule endoscopy could be arranged Protonix 40mg once daily for now Monitor H/H. If transfer does not seem feasible and while off of PO iron the black bowel movements resolve and H/H remains stable then an attempt at outpatient capsule endoscopy could be considered Advised her nurse to call Dr. Urena re: persistent cough Code(s): D64.9 - ANEMIA, UNSPECIFIED Qualifiers: Anemia type: unspecified type Qualified Code(s): D64.9 - Anemia, unspecified
[2016-06-13] MEDS: guaiFENesin 200 MG/10 ML 10 ML UNIT-DOSE CUPS PO PRN ×3 (12:12→21:15)
--- NOTE | 2016-06-13 12:33 | PN ---
Progress Note, Physician Chief Complaint: Events noted Still cough, but has difficulty bringing up sputum Scattered rhonchi heard History of Present Illness: Patient was seen and examined. Awake and alert. Chart was reviewed As outlined. trying to bring up sputum, but unable. Complains of cough Denies chest pain - Current Medication List Current Medications: Active Medications Albuterol Sulfate (Ventolin 0.083% Nebulizer Soln -) 1 amp NEB Q6H PRN PRN Reason: SHORT OF BREATH/WHEEZING Last Admin: 06/10/16 12:17 Dose: 1 amp Albuterol/Ipratropium (Duoneb -) 1 amp NEB QIDR [facility] Last Admin: 06/13/16 11:36 Dose: 1 amp Carvedilol (Coreg -) 6.25 mg PO BID [facility] Last Admin: 06/13/16 09:59 Dose: 6.25 mg Guaifenesin (Robitussin -) 10 ml PO Q4H PRN PRN Reason: COUGH Last Admin: 06/13/16 12:12 Dose: 10 ml Pantoprazole Sodium (Protonix -) 40 mg PO DAILY [facility] Last Admin: 06/13/16 09:59 Dose: 40 mg Prednisone (Deltasone -) 40 mg PO DAILY [facility] Stop: 06/16/16 10:59 Last Admin: 06/13/16 09:59 Dose: 40 mg Spironolactone (Aldactone -) 25 mg PO DAILY [facility] Last Admin: 06/13/16 09:58 Dose: 25 mg Valsartan (Diovan -) 40 mg PO DAILY [facility] Last Admin: 06/13/16 09:59 Dose: 40 mg - Objective Vital Signs: Vital Signs Temperature 97.8 F 06/13/16 05:54 Pulse Rate 72 06/13/16 05:54 Respiratory Rate 20 06/13/16 05:54 Blood Pressure 128/62 06/13/16 05:54 O2 Sat by Pulse Oximetry (%) 100 06/12/16 21:00 Neck: Yes: Supple Cardiovascular: Yes: Regular Rate and Rhythm, S1, S2 Respiratory: Yes: Cough, Rhonchi Gastrointestinal: Yes: Normal Bowel Sounds, Soft. No: Tenderness Edema: No Additional Findings/Remarks: - Review of Systems Constitutional: denies: Chills, Fever Cardiovascular: denies: Chest Pain, Palpitations, Shortness of Breath Respiratory: (+) Cough, denies: Hemoptysis, Orthopnea, PND, SOB Gastrointestinal: denies: Abdominal Pain, Constipation, Diarrhea, Melena, Nausea , Rectal Bleeding, Vomiting Genitourinary: denies: Hematuria Musculoskeletal: denies: Joint Pain Neurological: denies: Dizziness, Headache, Seizure, Syncope Labs: CBC, BMP 06/13/16 06:00 06/13/16 06:00 Problem List - Problems (1) Anemia Code(s): D64.9 - ANEMIA, UNSPECIFIED Qualifiers: Anemia type: unspecified type Qualified Code(s): D64.9 - Anemia, unspecified (2) COPD exacerbation Code(s): J44.1 - CHRONIC OBSTRUCTIVE PULMONARY DISEASE W (ACUTE) EXACERBATION (3) Left ventricular diastolic dysfunction Code(s): I51.9 - HEART DISEASE, UNSPECIFIED (4) Mitral regurgitation Code(s): I34.0 - NONRHEUMATIC MITRAL (VALVE) INSUFFICIENCY Qualifiers: Cardiac valve disease etiology: nonrheumatic Qualified Code(s): I34.0 - Nonrheumatic mitral (valve) insufficiency (5) Acute on chronic diastolic (congestive) heart failure Code(s): I50.33 - ACUTE ON CHRONIC DIASTOLIC (CONGESTIVE) HEART FAILURE (6) Acute on chronic renal insufficiency Code(s): N28.9 - DISORDER OF KIDNEY AND URETER, UNSPECIFIED N18.9 - CHRONIC KIDNEY DISEASE, UNSPECIFIED (7) Hypertensive cardiovascular disease Code(s): I11.9 - HYPERTENSIVE HEART DISEASE WITHOUT HEART FAILURE Qualifiers: Heart failure presence: without heart failure Qualified Code(s): I11.9 - Hypertensive heart disease without heart failure (8) Mitral valve prolapse Code(s): I34.1 - NONRHEUMATIC MITRAL (VALVE) PROLAPSE Assessment/Plan 1. Acute exacerbation of COPD/acute on chronic bronchitis 2. CAD angina pectoris, stable 3. Chronic LV diastolic dysfunction 4. MVP with moderate to severe mitral valve regurgitation 5. HTN/HCVD 6. Anemia probable GI blood loss and small bowel AVM post transfusion - await outpatient capsule endoscopy 7. Acute on CKD PLAN: 1. Bronchodilator, O2 and Prednisone with GI protection 2. Continue Carvedilol 6.25 mg BID. Continue Diovan and Aldactone as tolerated 3. Hold ASA pending completion of GI evaluation (she will eventually need capsule endoscopy), monitor Hgb and transfuse PRBC to keep HCT > 30 Further plans are to follow Chad Valdes MD
--- NOTE | 2016-06-13 12:55 | PN ---
Progress Note (short form) - Note Progress Note: Renal follow up for CORONA/CKD Pt seen and examined at the bedside has non-productive cough no chest pain or sob has dark stools good urine output Vital Signs Temperature 97.8 F 06/13/16 05:54 Pulse Rate 72 06/13/16 05:54 Respiratory Rate 20 06/13/16 05:54 Blood Pressure 128/62 06/13/16 05:54 O2 Sat by Pulse Oximetry (%) 100 06/12/16 21:00 Intake & Output 06/10/16 06/11/16 06/12/16 06/13/16 23:59 23:59 23:59 23:59 Intake Total 810 1760 350 Output Total 2 Balance 810 1760 348 Weight 136 lb Gen: NAD, awake and alert CVS: RRR, No M/R Lungs: dec BS, no rales or wheeze Abd: soft NT/ND Ext: Trace edema by the ankles CBC, BMP 06/13/16 06:00 06/13/16 06:00 Current Medications Albuterol Sulfate (Ventolin 0.083% Nebulizer Soln -) 1 amp NEB Q6H PRN PRN Reason: SHORT OF BREATH/WHEEZING Last Admin: 06/10/16 12:17 Dose: 1 amp Albuterol/Ipratropium (Duoneb -) 1 amp NEB QIDR [facility] Last Admin: 06/13/16 11:36 Dose: 1 amp Carvedilol (Coreg -) 6.25 mg PO BID [facility] Last Admin: 06/13/16 09:59 Dose: 6.25 mg Guaifenesin (Robitussin -) 10 ml PO Q4H PRN PRN Reason: COUGH Last Admin: 06/13/16 12:12 Dose: 10 ml Pantoprazole Sodium (Protonix -) 40 mg PO DAILY [facility] Last Admin: 06/13/16 09:59 Dose: 40 mg Prednisone (Deltasone -) 40 mg PO DAILY [facility] Stop: 06/16/16 10:59 Last Admin: 06/13/16 09:59 Dose: 40 mg Spironolactone (Aldactone -) 25 mg PO DAILY [facility] Last Admin: 06/13/16 09:58 Dose: 25 mg Valsartan (Diovan -) 40 mg PO DAILY [facility] Last Admin: 06/13/16 09:59 Dose: 40 mg A/P 89 year old woman with PMhx of CHF, COPD, Hypertension, Hyperlipidemia, CKD stage 3 who presented with cough/body aches x 1 week and found to have acute on chronic anemia and BUN/Cr of 72/1.8. #Acute vs. Chronic renal insufficiency Baseline Cr values 1.4-1.6 Renal function now at baseline restarted on Valsartan and Aldactone yesterday Trend BUN/Cr #acute on chronic anemia s/p prbc transfusion GI eval - for capsule study Heme following s/p Procrit 06/12 #Hypertension BP at goal Goal BP < 140/90 #Hx of CHF no signs of acute decompensation Cardiology follow up Todd Roy DO
[2016-06-13 14:01] LABS: METAMYELOCYTE 1 % (0-2)
--- NOTE | 2016-06-13 19:49 | PN ---
Progress Note (short form) - Note Progress Note: Patient seen and examined feels better today no tarry bowel movements c/o cough Last Vital Signs Temp Pulse Resp BP Pulse Ox 97.7 F 20 L 92 H 133/51 100 06/12/16 17:15 06/12/16 17:15 06/12/16 17:15 06/12/16 17:15 06/12/16 09:00 HEENT: RAEANN, EOM Intact Cor: RSR, No murmurs, No gallops Lungs: Clear to P&A Abd: Soft, Normal bowel sounds, No organomegaly Ext:No significant edema Abnormal Lab Results 06/09/16 06/11/16 06/13/16 14:57 06:20 06:00 RBC 2.76 L Hgb 8.1 L Hct 23.9 L 24.4 L RDW 16.4 H Neutrophils % 88.0 H Lymphocytes % 6.0 L D Chloride BUN Creatinine Random Glucose Calcium AST ALT Serum Total Protein 5.4 L Total Protein Albumin 2.5 L Crossmatch See Detail 06/13/16 06:00 RBC Hgb Hct RDW Neutrophils % Lymphocytes % Chloride 109 H BUN 54 H Creatinine 1.5 H Random Glucose 134 H Calcium 8.2 L AST 4 L D ALT 8 L Serum Total Protein Total Protein 5.0 L Albumin 2.4 L Crossmatch Current Medications Albuterol Sulfate (Ventolin 0.083% Nebulizer Soln -) 1 amp NEB Q6H PRN PRN Reason: SHORT OF BREATH/WHEEZING Last Admin: 06/10/16 12:17 Dose: 1 amp Albuterol/Ipratropium (Duoneb -) 1 amp NEB QIDR [facility] Last Admin: 06/13/16 17:26 Dose: 1 amp Carvedilol (Coreg -) 6.25 mg PO BID [facility] Last Admin: 06/13/16 09:59 Dose: 6.25 mg Guaifenesin (Robitussin -) 10 ml PO Q4H PRN PRN Reason: COUGH Last Admin: 06/13/16 17:24 Dose: 10 ml Pantoprazole Sodium (Protonix -) 40 mg PO DAILY [facility] Last Admin: 06/13/16 09:59 Dose: 40 mg Prednisone (Deltasone -) 40 mg PO DAILY [facility] Stop: 06/16/16 10:59 Last Admin: 06/13/16 09:59 Dose: 40 mg Spironolactone (Aldactone -) 25 mg PO DAILY [facility] Last Admin: 06/13/16 09:58 Dose: 25 mg Valsartan (Diovan -) 40 mg PO DAILY [facility] Last Admin: 06/13/16 09:59 Dose: 40 mg A/P Acute COPD Exacerbation LV Diastolic Dysfunction Mitral Regurgitation/Mitral Valve Prolapse HTN GERD Anemia Anemia -- normocytic .s/p 1 unit PRBCs anemia of CKD + gi blood loss---stool occult +/IRon sat. low h/o colonoscopy /EGD --which were normal in 04/10 per patient. Was scheduled for capsule endoscopy this week on protonix/vit. c will d/c feosol s/p iv iron as patient with lose BMs on Po iron B12/fT4/SIFE-nl to get gi w/u per gi team --capsule endoscopy cough --per primary
[2016-06-14 06:05] VITALS: PULSE 89
[2016-06-14] MEDS: guaiFENesin 200 MG/10 ML 10 ML UNIT-DOSE CUPS PO PRN ×2 (06:16→10:24)
[2016-06-14] MEDS: ALBUTEROL SO4 2.5/IPRATROPIUM 0.5 INH SOL 3 ML VIAL.NEB. NEB SCH (06:57)
[2016-06-14 08:09] LABS: BASOPHIL 0.2 % (0-2.0); EOSINOPHIL 0.1 % (0-4.5); MCH 29.5 pg (25.7-33.7); MCHC 33.1 g/dl (32.0-36.0); MEAN CELL VOLUME 89.3 fl (80-96); MEAN PLT VOLUME 8.4 fl (7.5-11.1); PLATELET COUNT 266 K/MM3 (134-434); RDW 16.7 % (11.6-15.6); WHITE BLOOD COUNT 8.8 K/mm3 (4.0-10.0)
--- NOTE | 2016-06-14 08:21 | PN ---
Progress Note (short form) - Note Progress Note: Had d/w Dr. Conti from [facility]. Accepted L[facility]indarichard for xfer for eval for capsule endoscopy Problem List - Problems (1) Anemia Code(s): D64.9 - ANEMIA, UNSPECIFIED Qualifiers: Anemia type: unspecified type Qualified Code(s): D64.9 - Anemia, unspecified
--- NOTE | 2016-06-14 08:30 | PN ---
Progress Note (short form) - Note Progress Note: Discussed plan with Ms. Ayala. Will contemplate whether she wants to be transferred or not Problem List - Problems (1) Anemia Code(s): D64.9 - ANEMIA, UNSPECIFIED Qualifiers: Anemia type: unspecified type Qualified Code(s): D64.9 - Anemia, unspecified
[2016-06-14 08:46] LABS: CALCIUM 8.4 mg/dL (8.5-10.1)
[2016-06-14 08:49] LABS: CREATININE 1.4 mg/dL (0.55-1.02)
--- NOTE | 2016-06-14 09:17 | PN ---
Progress Note, Physician Chief Complaint: Pt awake alert Sob Improved pul note appreciated Renal note appreciated rpt hb shows 8.3hct 25.5 Gi made arrangement to transfer the pt to [facility] for capsule endoscopy ,but pt refused to transfer and go for the procedure.,and she wants to f/u with gi as an Out patient and she wants to go home - Current Medication List Current Medications: Active Medications Albuterol Sulfate (Ventolin 0.083% Nebulizer Soln -) 1 amp NEB Q6H PRN PRN Reason: SHORT OF BREATH/WHEEZING Last Admin: 06/10/16 12:17 Dose: 1 amp Albuterol/Ipratropium (Duoneb -) 1 amp NEB QIDR [facility] Last Admin: 06/14/16 06:57 Dose: 1 amp Carvedilol (Coreg -) 6.25 mg PO BID [facility] Last Admin: 06/13/16 21:15 Dose: 6.25 mg Guaifenesin (Robitussin -) 10 ml PO Q4H PRN PRN Reason: COUGH Last Admin: 06/14/16 06:16 Dose: 10 ml Pantoprazole Sodium (Protonix -) 40 mg PO DAILY [facility] Last Admin: 06/13/16 09:59 Dose: 40 mg Prednisone (Deltasone -) 40 mg PO DAILY [facility] Stop: 06/16/16 10:59 Last Admin: 06/13/16 09:59 Dose: 40 mg Spironolactone (Aldactone -) 25 mg PO DAILY [facility] Last Admin: 06/13/16 09:58 Dose: 25 mg Valsartan (Diovan -) 40 mg PO DAILY [facility] Last Admin: 06/13/16 09:59 Dose: 40 mg - Objective Vital Signs: Vital Signs Temperature 98.3 F 06/14/16 06:00 Pulse Rate 89 06/14/16 06:00 Respiratory Rate 20 06/14/16 06:00 Blood Pressure 134/81 06/14/16 06:00 O2 Sat by Pulse Oximetry (%) 98 06/13/16 21:00 Constitutional: Yes: No Distress Eyes: Yes: Conjunctiva Clear HENT: Yes: Atraumatic Neck: Yes: Supple, Trachea Midline Cardiovascular: Yes: Regular Rate and Rhythm Respiratory: Yes: Regular, CTA Bilaterally, Wheezes (occasionally) Gastrointestinal: Yes: Normal Bowel Sounds, Soft Musculoskeletal: Yes: WNL Extremities: Yes: WNL Edema: No Peripheral Pulses WNL: Yes Neurological: Yes: Alert, Oriented Psychiatric: Yes: Alert, Oriented Labs: CBC, BMP 06/14/16 07:25 06/14/16 07:25 Assessment/Plan SOB COPD exacerbation,cough Anemia Viral syndtome improved HTN H/O chf Hypercholestrolemia PLAN Continue Albuterol nebulising treatment arrangement made to transfer the pt to [facility],pt refused to go,and pt wants to f/u with gi as OP pt d/c home
[2016-06-14] MEDS ORDERED: IRON SUCROSE INJECTION 100 MG in SODIUM CHLORIDE 95 ML IVPB ONE (10:00)
[2016-06-14] MEDS ORDERED: PT OWN MED DRAWER 7, Y5N ONE (10:20)
[2016-06-14] MEDS: SPIRONOLACTONE 25 MG TABLET (FP) PO SCH (10:24)
[2016-06-14] MEDS: CARVEDILOL 6.25 MG TABLET (FP) PO SCH (10:24)
[2016-06-14] MEDS: VALSARTAN 40 MG TABLET (FP) PO SCH (10:24)
[2016-06-14] MEDS: predniSONE 20 MG TABLET (UD) PO SCH (10:24)
[2016-06-14] MEDS: PANTOPRAZOLE 40 MG TABLET (FP) PO SCH (10:24)
[2016-06-14] MEDS: ALBUTEROL SO4 0.083% IH SOL 2.5 MG/3 ML VIAL.NEB. NEB PRN (11:40)
--- NOTE | 2016-06-14 12:04 | PN ---
Progress Note (short form) - Note Progress Note: Renal follow up for CORONA/CKD Pt seen and examined at the bedside cough persists denies sob no abd pain, chest pain still has dark stools does not want to be transferred, wants to go home and continue work up as outpatient Vital Signs Temperature 98.3 F 06/14/16 06:00 Pulse Rate 89 06/14/16 06:00 Respiratory Rate 20 06/14/16 06:00 Blood Pressure 134/81 06/14/16 06:00 O2 Sat by Pulse Oximetry (%) 99 06/14/16 09:00 Intake & Output 06/11/16 06/12/16 06/13/16 06/14/16 23:59 23:59 23:59 23:59 Intake Total 1760 350 295 250 Output Total 2 0 Balance 1760 348 295 250 Gen: NAD, awake and alert CVS: RRR, No M/R Lungs: dec BS, no rales or wheeze Abd: soft NT/ND Ext: Trace edema by the ankles CBC, BMP 06/14/16 07:25 06/14/16 07:25 Current Medications Albuterol Sulfate (Ventolin 0.083% Nebulizer Soln -) 1 amp NEB Q6H PRN PRN Reason: SHORT OF BREATH/WHEEZING Last Admin: 06/14/16 11:40 Dose: 1 amp Carvedilol (Coreg -) 6.25 mg PO BID [facility] Last Admin: 06/14/16 10:24 Dose: 6.25 mg Guaifenesin (Robitussin -) 10 ml PO Q4H PRN PRN Reason: COUGH Last Admin: 06/14/16 10:24 Dose: 10 ml Pantoprazole Sodium (Protonix -) 40 mg PO DAILY [facility] Last Admin: 06/14/16 10:24 Dose: 40 mg Prednisone (Deltasone -) 40 mg PO DAILY [facility] Stop: 06/16/16 10:59 Last Admin: 06/14/16 10:24 Dose: 40 mg Spironolactone (Aldactone -) 25 mg PO DAILY [facility] Last Admin: 06/14/16 10:24 Dose: 25 mg Valsartan (Diovan -) 40 mg PO DAILY [facility] Last Admin: 06/14/16 10:24 Dose: 40 mg A/P 89 year old woman with PMhx of CHF, COPD, Hypertension, Hyperlipidemia, CKD stage 3 who presented with cough/body aches x 1 week and found to have acute on chronic anemia and BUN/Cr of 72/1.8. #Acute vs. Chronic renal insufficiency Baseline Cr values 1.4-1.6 Renal function at baseline Cr stable after starting Valsartan/Aldactone ok for discharge with follow up in office in 2-3 weeks Repeat labs with PMD in 4-5 days avoid nsaids, IV contrast at this time #acute on chronic anemia Hgb stable Capsule study as outpatient GI following #Hypertension BP at goal Goal BP < 140/90 #Hx of CHF no signs of acute decompensation Cardiology follow up Todd Roy DO
[2016-06-14 12:15] VITALS: BP 141/57; TEMP 98.1
[2016-06-15 00:06] LABS: ALBUMIN FOR UPE 40.3 % (.); GAMMA GLOBULIN % 15.7 % (.); M-SPIKE, % Not Observed % (Not Observed)
--- NOTE | 2016-06-23 21:01 | DS ---
Physical Examination Vital Signs: Vital Signs Temperature 98.1 F 06/14/16 08:00 Pulse Rate 89 06/14/16 12:02 Respiratory Rate 22 06/14/16 08:00 Blood Pressure 141/57 06/14/16 08:00 O2 Sat by Pulse Oximetry (%) 99 06/14/16 12:02 Labs: CBC, BMP 06/14/16 07:25 06/14/16 07:25 Discharge Summary Reason For Visit: FLU LIKE SYMPTOMS,ANEMIA,COPD Copd exacerbation SOB CHF Anemia,acute on chronic renal insufficiency HTN hypercholestrolemia Hospital Course: 89 yr old female with h/o copd,chronic anemia,cHF.CKD,HTN,hypercholestrolemia admitted with sob,cough and body ache.no fever At the time of admission HB/HCT was 6.7/21 and BUN/cre was 102/1.8.X ray chest was NL.and EKg was NL. Pt was given 2 units of PRBC.Pt had colonoscopy and EGD in [facility] for w/u of anemia ,but no course found and pt was waiting for capsule Endoscopy. Pt was treated with home meds,bronchodialators,Oxygen.Pt was followed by [facility], Cardiology and GI and hematology. GI arranged to transfer the PT to [facility] for Capsule endoscopy,but pt refused to [facility].As per pt she will f/u with GI as an outpatient and will go for capsule endoscopy .Pt was stable on the floor Pt discharged home on HOME meds and rec to f/u with and PMD - Instructions Referrals: Girma Bazan MD [Primary Care Provider] - Disposition: HOME - Home Medications Comprehensive Discharge Medication List: Ambulatory Orders Ascorbate Calcium [Vitamin C] 500 mg PO DAILY 06/09/16 Carvedilol [Coreg] 6.25 mg PO BID 06/09/16 Ferrous Sulfate [Feosol] 325 mg PO DAILY 06/09/16 Furosemide [Lasix -] 40 mg PO DAILY 06/09/16 Omeprazole 40 mg PO DAILY 06/09/16 Polyethylene Glycol 3350 [Miralax 119 gm Btl -] 17 gm PO DAILY 06/09/16 Spironolactone [Aldactone] 25 mg PO DAILY 06/09/16 Valsartan [Diovan] 40 mg PO DAILY 06/09/16 Albuterol 0.083% Nebulizer Avis [Ventolin 0.083% Nebulizer Soln -] 1 neb NEB Q6H #30 vial 06/14/16 Prednisone [Deltasone -] 30 mg PO DAILY #4 tablet 06/14/16
== END 2016-06-14 13:11 | disposition home or self-care (01) | DRG 191 ==
LOC: JER 13:45 → JERBED 17:45 → J8W 06-10 15:25
PROVIDERS: ADMIT Internal Medicine; ATTEND Internal Medicine
DX: J44.1 Chronic obstructive pulmonary disease with (acute) exacerbation (principal); N17.8 Other acute kidney failure; K21.9 Gastro-esophageal reflux disease without esophagitis; M48.00 Spinal stenosis, site unspecified; D50.0 Iron deficiency anemia secondary to blood loss (chronic); M54.5 Low back pain; B34.9 Viral infection, unspecified; I34.0 Nonrheumatic mitral (valve) insufficiency; E78.00 Pure hypercholesterolemia, unspecified; I25.10 Atherosclerotic heart disease of native coronary artery without angina pectoris; I13.10 Hypertensive heart and chronic kidney disease without heart failure, with stage 1 through stage 4 chronic kidney disease, or unspecified chronic kidney disease; N18.3 Chronic kidney disease, stage 3 (moderate); Z87.891 Personal history of nicotine dependence
CPT/HCPCS: 36415; 36430; 71010-TC; 80048; 80053; 81003; 81015; 82272; 82550; 82570; 82607; 82728; 82747; 82784; 83540; 83550; 83735; 84100; 84155; 84156; 84157; 84165; 84300; 84439; 84443; 84484; 84540; 85014; 85025; 86334; 86850; 86900; 86901; 86922; 87804; 93005; 93010; 94640; 99285-25; J0885; J1756; P9058